=== PATIENT | female | born 1940 | race Caucasian/White ===

== ENCOUNTER → 2016-03-16 | Outpatient (CLI) | payer OTHER ==
[~2016-03-16] MED LIST: ASPEC81 PO; AVP150 PO; BTLAI INJ; CIPR-255 PO; DICY10CA55 PO; IBUP-1050 PO; LORA-741 PO; SIMV20TA5 PO; TRIA75TA53 PO
[2016-03-16 13:59] LABS: ESTIMATED AVERAGE GLUCOSE 111 mg/dl; HA1C FLAG Normal (Normal)
[2016-03-16 16:48] LABS: ALB/GLOB RATIO 1.3 (0.9-2); ALKALINE PHOSPHATASE 92 U/L (45-117); ALT/SGPT 26 U/L (12-78); AST/SGOT 15 U/L (15-37); BLOOD UREA NITROGEN 24 mg/dl (7-18); BUN/CREATININE RATIO 25.5 (10-20); CALCIUM 9.3 mg/dl (8.5-10.1); CARBON DIOXIDE 26 mmol/L (21-32); CHLORIDE 106 mmol/L (98-107); CHOLESTEROL 179 mg/dl (0-200); CHOLESTEROL/HDL RATIO 2.9; CREATININE 0.96 mg/dl (0.60-1.20); GLUCOSE 93 mg/dl (70-99); HDL CHOLESTEROL 61 mg/dl; POTASSIUM 3.6 mmol/L (3.5-5.1); SODIUM 142 mmol/L (136-145); TRIGLYCERIDES 96 mg/dl (0-150); VERY LOW DENSITY LIPOPROT CALC 19 mg/dl
== END | disposition home or self-care (01) ==
LOC: C.LABSPEC 12:32
PROVIDERS: ATTEND Internal Medicine
DX: I10 Essential (primary) hypertension (principal); R78.5 Finding of other psychotropic drug in blood; R73.9 Hyperglycemia, unspecified

== ENCOUNTER → 2016-09-15 | Outpatient (CLI) | payer OTHER ==
[2016-09-15 13:03] LABS: ESTIMATED AVERAGE GLUCOSE 114 mg/dl; HA1C FLAG Normal (Normal)
[2016-09-15 13:10] LABS: ALT/SGPT 625 U/L (12-78); AST/SGOT 306 U/L (15-37); BLOOD UREA NITROGEN 22 mg/dl (7-18); BUN/CREATININE RATIO 19.7 (10-20); CALCIUM 9.3 mg/dl (8.5-10.1); CARBON DIOXIDE 26 mmol/L (21-32); CHLORIDE 107 mmol/L (98-107); CHOLESTEROL 170 mg/dl (0-200); GLUCOSE 88 mg/dl (70-99); POTASSIUM 3.9 mmol/L (3.5-5.1); SODIUM 139 mmol/L (136-145); TRIGLYCERIDES 112 mg/dl (0-150); VERY LOW DENSITY LIPOPROT CALC 22 mg/dl
[2016-09-15 13:14] LABS: ALB/GLOB RATIO 1.2 (0.9-2); ALKALINE PHOSPHATASE 124 U/L (45-117); CHOLESTEROL/HDL RATIO 2.9; HDL CHOLESTEROL 59 mg/dl
== END | disposition home or self-care (01) ==
LOC: C.LABSPEC 12:18
PROVIDERS: ATTEND Internal Medicine
DX: Z00.00 Encounter for general adult medical examination without abnormal findings (principal); E78.5 Hyperlipidemia, unspecified; I10 Essential (primary) hypertension; R73.9 Hyperglycemia, unspecified

== ENCOUNTER → 2016-09-16 | Outpatient (CLI) | payer OTHER ==
--- NOTE | 2016-09-16 13:43 | MAMMOGRAPHY REPORT ---
BILATERAL DIGITAL SCREENING MAMMOGRAM WITH CAD: 09/16/2016 CLINICAL HISTORY: Routine screening. Patient has no complaints. TECHNIQUE: Bilateral CC and MLO views were obtained. Current study was also evaluated with a Compute r Aided Detection (CAD) system. COMPARISON: Comparison is made to exams dated: 09/10/2015 mammogram, 09/07/2014 mammogram, 09/06/2013 m ammogram, 06/08/2012 mammogram, 06/03/2011 mammogram, and 05/28/2010 mammogram - [facility] enter. BREAST COMPOSITION: There are scattered areas of fibroglandular density in both breasts. FINDINGS: There are stable benign round microcalcifications in the right breast. The parenchymal pa ttern is similar to prior mammograms, with stable asymmetries in each lateral breast. No developing mass, architectural distortion or cluster of suspicious microcalcifications is seen. IMPRESSION: ACR BI-RADS CATEGORY 2: BENIGN There is no mammographic evidence of malignancy. A 1 year screening mammogram is recommended. The pa tient will receive written notification of the results. Approximately 10% of breast cancers are not detected with mammography. A negative mammographic report should not delay biopsy if a clinically suggestive mass is present. Aminata Hameed M.D. ay/:09/16/2016 10:44:55 Backrest Assembler: Crystal GUTIERREZ(Megan)(Darline)(BD), [facility] letter sent: Normal 1/2 BI-RADS Code: ACR BI-RADS Category 2: Benign
== END | disposition home or self-care (01) ==
LOC: C.MAMM 10:25
PROVIDERS: ATTEND Internal Medicine
DX: Z12.31 Encounter for screening mammogram for malignant neoplasm of breast (principal)

== ENCOUNTER → 2016-09-17 | Outpatient (CLI) | payer OTHER ==
[2016-09-17 13:23] LABS: HEPATITIS B AB NEG
== END | disposition home or self-care (01) ==
LOC: C.LABSPEC 12:16
PROVIDERS: ATTEND Internal Medicine
DX: R74.8 Abnormal levels of other serum enzymes (principal)

== ENCOUNTER → 2016-09-24 | Outpatient (CLI) | payer OTHER ==
--- NOTE | 2016-09-24 09:05 | DIAGNOSTIC IMAGING REPORT ---
ABDOMINAL ULTRASOUND, RIGHT UPPER QUADRANT HISTORY: Abnormal LIVER ENZYMES. COMPARISON: Abdomen and pelvis CT 08/18/2015. FINDINGS: Pancreas: There is a 1.6 x 1.4 x 1.0 cm cyst at the pancreatic head. Liver: Unremarkable. Gallbladder: The gallbladder is surgically absent. CBD: 5 mm Right kidney: No hydronephrosis. IMPRESSION: A 1.6 x 1.4 x 1.0 cm pancreatic head cystic lesion. This favors a side branch IPMN or serous cystadenoma. Follow-up dedicated pancreatic MRI can be performed for further evaluation. Electronically signed by: Zeus Craven M.D. 09/24/2016 9:03 AM Dictated Date/Time: 09/24/2016 8:53 AM
== END | disposition home or self-care (01) ==
LOC: C.ULTR 07:53
PROVIDERS: ATTEND Internal Medicine
DX: R85.0 Abnormal level of enzymes in specimens from digestive organs and abdominal cavity (principal)

== ENCOUNTER → 2016-09-25 | Outpatient (CLI) | payer OTHER ==
[2016-09-25 19:37] LABS: LYME DISEASE AB IGM NEG (NEG)
[2016-09-25 19:38] LABS: LYME DISEASE AB IGG NEG (NEG)
== END | disposition home or self-care (01) ==
LOC: C.LABSPEC 17:36
PROVIDERS: ATTEND Internal Medicine
DX: K86.9 Disease of pancreas, unspecified (principal); R94.5 Abnormal results of liver function studies

== ENCOUNTER → 2016-10-01 | Outpatient (CLI) | payer OTHER ==
[2016-10-01 19:26] LABS: ALB/GLOB RATIO 1.2 (0.9-2); ALKALINE PHOSPHATASE 136 U/L (45-117); ALT/SGPT 590 U/L (12-78); AST/SGOT 277 U/L (15-37); BLOOD UREA NITROGEN 26 mg/dl (7-18); BUN/CREATININE RATIO 26.2 (10-20); CARBON DIOXIDE 27 mmol/L (21-32); CHLORIDE 106 mmol/L (98-107); GLUCOSE 81 mg/dl (70-99); POTASSIUM 4.3 mmol/L (3.5-5.1); SODIUM 135 mmol/L (136-145)
--- NOTE | 2016-10-01 20:49 | DIAGNOSTIC IMAGING REPORT ---
MRCP CLINICAL HISTORY: Pancreatic head lesion. COMPARISON STUDY: Abdominal CT dated 08/18/2015. Abdominal ultrasound dated 09/24/2016. TECHNIQUE: Abdominal MRCP is performed utilizing various T2-weighted sequences in the axial and coronal planes. 3-D reformats are created and assessed. IV contrast was not administered for this examination. The examination is compromised by motion artifact. FINDINGS: The gallbladder is surgically absent. There is no intrahepatic biliary ductal dilatation. The common bile duct is normal in caliber measuring up to 3 mm diameter. There are no filling defects seen to suggest choledocholithiasis. The pancreatic duct is normal in caliber. There is a 6 mm cystic structure adjacent to the main pancreatic duct in the pancreatic body seen on high-resolution axial image #135. This is typical appearance for a small sidebranch IPMN. 2 similar-appearing lesions are seen in the distal body and tail on axial image #130. There is a 1.4 cm lobulated cystic lesion in the pancreatic head seen on axial image #146. The heart is enlarged and there is trace pericardial fluid. No pleural effusion is identified. The hepatic parenchyma is grossly normal as imaged. The unenhanced spleen is grossly normal. The kidneys demonstrate mild cortical atrophy and are without hydronephrosis. The adrenal glands are normal as visualized. The abdominal aorta is normal in caliber. There is no abdominal ascites. No evidence of bowel obstruction is seen. IMPRESSION: 1. Unremarkable MRCP noting status post cholecystectomy. 2. There is a 1.4 cm lobulated cystic lesion the pancreatic head. This corresponds to the lesion seen by ultrasound, and likely represents a sidebranch IPMN or mucinous cystic neoplasm. Additionally, there are at least 3 additional subcentimeter cystic foci within the pancreas. These are also typical in appearance for small sidebranch IPMNs. If further assessment is desired then endoscopic ultrasound would be appropriate. 3. Additional findings as above. Electronically signed by: Leland Quick M.D. 10/01/2016 8:47 PM Dictated Date/Time: 10/01/2016 7:18 PM
== END | disposition home or self-care (01) ==
LOC: C.MRI 18:34
PROVIDERS: ATTEND Internal Medicine
DX: R74.8 Abnormal levels of other serum enzymes (principal); K86.9 Disease of pancreas, unspecified; Z90.49 Acquired absence of other specified parts of digestive tract

== ENCOUNTER → 2016-10-08 | Outpatient (CLI) | payer OTHER | END | disposition home or self-care (01) | LOC: C.LABSPEC 13:03 | PROVIDERS: ATTEND Internal Medicine | DX: R94.5 Abnormal results of liver function studies (principal) ==

== ENCOUNTER → 2016-10-15 | Outpatient (CLI) | payer OTHER | END | disposition home or self-care (01) | LOC: C.LABSPEC 12:09 | PROVIDERS: ATTEND Internal Medicine | DX: R74.8 Abnormal levels of other serum enzymes (principal) ==

== ENCOUNTER → 2016-10-28 | Outpatient (CLI) | payer OTHER | END | disposition home or self-care (01) | LOC: C.LABSPEC 12:12 | PROVIDERS: ATTEND Internal Medicine | DX: R74.8 Abnormal levels of other serum enzymes (principal) ==

== ENCOUNTER → 2017-02-26 | Outpatient (CLI) | payer OTHER ==
[2017-02-26 13:38] LABS: BASO % 0.3 %; BASO ABS # 0.01 K/uL (0-0.2); EOS % 1.7 %; EOS ABS # 0.06 K/uL (0-0.5); HEMATOCRIT 40.2 % (37-47); HEMOGLOBIN 13.9 g/dL (12.0-16.0); IG# 0.02 K/uL (0.00-0.02); LYMPH % 26.3 %; LYMPH ABS # 0.95 K/uL (1.2-3.4); MEAN CELL VOLUME 93.5 fL (80-100); MEAN CORPUSCULAR HEMOGLOBIN 32.3 pg (25-34); MEAN CORPUSCULAR HGB CONC 34.6 g/dl (32-36); MEAN PLATELET VOLUME 11.5 fL (7.4-10.4); MONO % 8.3 %; NEUT % 62.8 %; NEUT ABS # 2.27 K/uL (1.4-6.5); PLATELET COUNT 136 K/uL (130-400); RED CELL DISTRIBUTION WIDTH CV 13.2 % (11.5-14.5); RED CELL DISTRIBUTION WIDTH SD 45.3 fL (36.4-46.3); WHITE BLOOD COUNT 3.61 K/uL (4.8-10.8)
[2017-02-26 14:31] LABS: ALBUMIN 3.5 gm/dl (3.4-5.0); ALT/SGPT 37 U/L (12-78); AST/SGOT 26 U/L (15-37); BLOOD UREA NITROGEN 26 mg/dl (7-18); CALCIUM 8.9 mg/dl (8.5-10.1); CARBON DIOXIDE 27 mmol/L (21-32); CHOLESTEROL 186 mg/dl (0-200); CREATININE 1.13 mg/dl (0.60-1.20); GLUCOSE 93 mg/dl (70-99); POTASSIUM 3.7 mmol/L (3.5-5.1); SODIUM 140 mmol/L (136-145)
[2017-02-26 14:34] LABS: ALKALINE PHOSPHATASE 76 U/L (45-117); LDL CHOLESTEROL (DIRECT) 122 mg/dl; TOTAL PROTEIN 6.6 gm/dl (6.4-8.2)
== END | disposition home or self-care (01) ==
LOC: C.LABSPEC 12:19
PROVIDERS: ATTEND Internal Medicine
DX: J40 Bronchitis, not specified as acute or chronic (principal); I10 Essential (primary) hypertension; E78.5 Hyperlipidemia, unspecified; R74.8 Abnormal levels of other serum enzymes

== ENCOUNTER → 2017-02-26 | Outpatient (CLI) | payer OTHER ==
--- NOTE | 2017-02-26 12:12 | DIAGNOSTIC IMAGING REPORT ---
CHEST 2 VIEWS ROUTINE CLINICAL HISTORY: Cough, shortness of breath and chest pain. COMPARISON STUDY: Chest radiograph August 06, 2006. FINDINGS: Lung volumes are normal. No pneumothorax or pleural effusion is identified. Mild left lower lung opacity favors atelectasis. There is no consolidation to suggest pneumonia. Pulmonary vascularity is normal. Cardiomediastinal silhouette is stable. Linear right infrahilar opacity reflects atelectasis. There are cholecystectomy clips. IMPRESSION: No acute cardiopulmonary findings. Electronically signed by: Tre Limon M.D. 02/26/2017 12:11 PM Dictated Date/Time: 02/26/2017 11:42 AM
== END | disposition home or self-care (01) ==
LOC: C.RAD 11:15
PROVIDERS: ATTEND Internal Medicine
DX: J40 Bronchitis, not specified as acute or chronic (principal)

== ENCOUNTER → 2017-09-17 | Outpatient (CLI) | payer OTHER ==
[2017-09-17 14:17] LABS: ALBUMIN 3.8 gm/dl (3.4-5.0); ALKALINE PHOSPHATASE 89 U/L (45-117); ALT/SGPT 23 U/L (12-78); AST/SGOT 20 U/L (15-37); BLOOD UREA NITROGEN 23 mg/dl (7-18); CARBON DIOXIDE 26 mmol/L (21-32); CHOLESTEROL 243 mg/dl (0-200); CREATININE 0.97 mg/dl (0.60-1.20); GLUCOSE 86 mg/dl (70-99); LDL CHOLESTEROL (DIRECT) 171 mg/dl; POTASSIUM 3.4 mmol/L (3.5-5.1); SODIUM 139 mmol/L (136-145); TOTAL PROTEIN 6.8 gm/dl (6.4-8.2)
[2017-09-17 14:22] LABS: HEMOGLOBIN A1C 5.5 % (4.5-5.6)
== END | disposition home or self-care (01) ==
LOC: C.LABSPEC 13:05
PROVIDERS: ATTEND Internal Medicine
DX: Z00.00 Encounter for general adult medical examination without abnormal findings (principal); E78.5 Hyperlipidemia, unspecified; I10 Essential (primary) hypertension

== ENCOUNTER → 2017-09-20 | Outpatient (CLI) | payer OTHER ==
--- NOTE | 2017-09-21 14:42 | MAMMOGRAPHY REPORT ---
BILATERAL DIGITAL SCREENING MAMMOGRAM TOMOSYNTHESIS WITH CAD: 09/20/2017 CLINICAL HISTORY: Routine screening. Patient has no complaints. TECHNIQUE: The study was acquired using full field digital technology and interpreted from soft copy. Breast tomosynthesis in addition to standard 2D mammography was performed. Current study was also ev aluated with a Computer Aided Detection (CAD) system. COMPARISON: Comparison is made to exams dated: 09/16/2016 mammogram, 09/10/2015 mammogram, 09/07/2014 ma mmogram, 09/06/2013 mammogram, 06/08/2012 mammogram, and 06/03/2011 mammogram - [facility] nter. BREAST COMPOSITION: There are scattered areas of fibroglandular density in both breasts. FINDINGS: There is a newly visualized 3 mm focal asymmetry in the upper outer posterior right breast, for which additional targeted ultrasound and possible additional mammographic views are recommended. There are minimal vascular calcifications in the breasts. No other suspicious mass, architectural di stortion or cluster of microcalcifications is seen. IMPRESSION: ACR BI-RADS CATEGORY 0: INCOMPLETE EVALUATION: NEED ADDITIONAL IMAGING EVALUATION The newly visualized 3 mm focal asymmetry in the upper outer posterior right breast needs additional evaluation. The patient will be called to schedule an appointment. Some breast cancers are not detected with mammography. A negative mammographic report should not alan y biopsy if a clinically suggestive mass is present. Aminata Hameed M.D. ay/:09/20/2017 15:15:54 Operations Support Professionals: RT Shahla(Megan)(Darline), [facility] letter sent: Addl Imaging 0 BI-RADS Code: ACR BI-RADS Category 0: Incomplete Evaluation: Need Additional Imaging Evaluation
== END | disposition home or self-care (01) ==
LOC: C.MAMM 10:22
PROVIDERS: ATTEND Internal Medicine
DX: Z12.31 Encounter for screening mammogram for malignant neoplasm of breast (principal); R92.8 Other abnormal and inconclusive findings on diagnostic imaging of breast

== ENCOUNTER → 2017-09-30 | Outpatient (CLI) | payer OTHER ==
--- NOTE | 2017-09-30 15:41 | MAMMOGRAPHY REPORT ---
UNILATERAL RIGHT DIGITAL DIAGNOSTIC MAMMOGRAM TOMOSYNTHESIS WITH CAD AND TARGETED RIGHT ULTRASOUND: CLINICAL HISTORY: Callback from screening mammogram for right breast asymmetry. Right Asymmetry. TECHNIQUE: The study was acquired using full field digital technology and interpreted from soft copy. Breast tomosynthesis in addition to standard 2D mammography was performed. Current study was also ev aluated with a Computer Aided Detection (CAD) system. Spot compression right CC and MLO and right X CCL 2D and tomosynthesis images were obtained. COMPARISON: Comparison is made to exams dated: 09/20/2017 mammogram, 09/16/2016 mammogram, 09/10/2015 bahman mogram, 09/07/2014 mammogram, 09/06/2013 mammogram, and 06/08/2012 mammogram - [facility]. BREAST COMPOSITION: There are scattered areas of fibroglandular density in right breast. FINDINGS: Spot compression views demonstrate a small oval low-density circumscribed benign-appearing 3 mm mass within the right upper outer quadrant. Targeted ultrasound was performed of the right upper outer quadrant in the region of the mammographic mass. In the right 11:00 breast, approximately 7 cm from the nipple, there is an oval circumscribed anechoic mass which measures 2 x 2 mm. This corresponds with the circumscribed mammographic mass an d is consistent with a benign cyst. IMPRESSION: ACR BI-RADS CATEGORY 2: BENIGN, ULTRASOUND ACR BI-RADS CATEGORY 2: BENIGN Benign 2 mm cyst in the right 11:00 breast on ultrasound, which corresponds with the circumscribed ma mmographic mass. There is no mammographic or sonographic evidence of malignancy. A 1 year screening mammogram is recommended. The patient has been verbally notified of the results. Some breast cancers are not detected with mammography. A negative mammographic report should not alan y biopsy if a clinically suggestive mass is present. Thi Frost M.D. /:09/30/2017 09:43:35 Design Transferrer: RT Angela(R)(M), [facility]; Thi Frost MD, [facility] letter sent: Normal 1/2 OVERALL STUDY BIRADS: 2 Benign
== END | disposition home or self-care (01) ==
LOC: C.MAMM 09:10
PROVIDERS: ATTEND Internal Medicine
DX: N64.9 Disorder of breast, unspecified (principal); N60.01 Solitary cyst of right breast

== ENCOUNTER 2019-12-18 12:11 | Inpatient (IN) ==
[2019-12-18 12:41] LABS: Basophils # (auto) 0.02 K/uL (0-0.2); Basophils % (auto) 0.2 %; Eosinophils # (auto) 0.16 K/uL (0-0.5); Eosinophils % (auto) 1.6 %; Hematocrit (blood only) 40.1 % (37-47); Hemoglobin 13.2 g/dL (12.0-16.0); Immature Granulocytes # (auto) 0.06 K/uL (0.00-0.02); Immature Granulocytes % (auto) 0.6 %; Lymphocytes # (auto) 1.81 K/uL (1.2-3.4); Lymphocytes % (auto) 17.6 %; Mean Corpuscular Hgb Conc 32.9 g/dL (32-36); Mean Corpuscular Volume 94.1 fL (80-100); Mean Platelet Volume 10.6 fL (7.4-10.4); Monocytes # (auto) 0.56 K/uL (0.11-0.59); Monocytes % (auto) 5.4 %; Neutrophils # (auto) 7.68 K/uL (1.4-6.5); Neutrophils % (auto) 74.6 %; Platelet Count 352 K/uL (130-400); RDW Coefficient of Variation 13.1 % (11.5-14.5); RDW Standard Deviation 45.3 fL (36.4-46.3); Red Blood Count 4.26 M/uL (4.2-5.4); White Blood Count 10.29 K/uL (4.8-10.8)
[2019-12-18] MEDS ORDERED: SODIUM CHLORIDE 0.9% 1000ML 1,000 ML IV SCH (12:45)
[2019-12-18 12:54] LABS: Alanine Aminotransferase 15 U/L (12-78); Albumin Level 3.7 gm/dl (3.4-5.0); Aspartate Aminotransferase 14 U/L (15-37); BUN Creatinine Ratio 18.1 (10-20); Blood Urea Nitrogen 24 mg/dl (7-18); Calcium 9.6 mg/dl (8.5-10.1); Carbon Dioxide 23 mmol/L (21-32); Chloride 104 mmol/L (98-107); Creatinine Clr Calc Pharmacy 30.3 ml/min; Est GFR (African American) 42.6; Est GFR (Non-African American) 36.7; Glucose 112 mg/dl (70-99); Potassium 3.6 mmol/L (3.5-5.1); Sodium 137 mmol/L (136-145)
[2019-12-18 13:00] LABS: INR 1.1 (0.9-1.1); Prothrombin Time 11.4 Seconds (9.0-12.0)
[2019-12-18 13:05] LABS: Alkaline Phosphatase 110 U/L (45-117); Bilirubin,Total 0.7 mg/dl (0.2-1); Globulin 3.8 gm/dl (2.5-4.0); Total Protein 7.5 gm/dl (6.4-8.2); Troponin I < 0.015 ng/ml (0-0.045)
[2019-12-18 13:18] LABS: T4 Free Thyroxine 1.19 ng/dl (0.8-1.6)
[2019-12-18] MEDS ORDERED: IOVERSOL 100ml IV ONE (13:21)
--- NOTE | 2019-12-18 13:27 | Emergency Department Note ---
History of Present Illness General Chief complaint: Syncope (Near Syncope) Stated complaint: Sudden onset dizzy/near sycope w/ abd pain x 3wks Time Seen by Provider: 12/18/19 12:22 Source: patient Mode of arrival: ambulatory Limitations: no limitations History of Present Illness Provider complaint: Left lower quadrant abdominal pain and syncope Maximum Pain Intensity: 0 This is an 79-year-old female who presents to the ED with a chief complaint of a syncopal episode this morning as well as ongoing left lower quadrant abdominal pain. The patient states that she has intermittent sharp pains in her left lower quadrant for the past 2 or 3 weeks. She states that normally when she gets these pains, she drinks some fluids for couple of days and it resolved but this 1 did not. She describes also a continuous pressure in her left lower quadrant. Her symptoms are worse with eating and drinking. Yesterday her sharp pains became more often. She denies having any sharp pains now. This morning when she was having a bowel movement, she had a pressure there and was straining to move her bowels. She subsequently had a syncopal episode and passed out. The patient was diaphoretic when she awoke. The was present and confirmed the diaphoresis. There was no seizure activity. She does report some nausea associated with her bad pains but currently denies any nausea. She has not vomited. She did not have any palpitations or chest pains when she awoke. She denies any shortness of breath. She has not had any fevers or recent illness. Home Medications Home Medications Medication Instructions Recorded Confirmed Type L. acidophilus-L. rhamnosus 1 cap PO QAM 12/18/19 12/18/19 History [Probiotic] ascorbic acid (vitamin C) [Vitamin 1 g PO QAM 12/18/19 12/18/19 History C] aspirin 81 mg PO HS 12/18/19 12/18/19 History cholecalciferol (vitamin D3) 50 mcg PO QAM 12/18/19 12/18/19 History [Vitamin D3] ezetimibe 10 mg PO HS 12/18/19 12/18/19 History irbesartan 150 mg PO QAM 12/18/19 12/18/19 History lorazepam 0.5 mg PO HS 12/18/19 12/18/19 History niacin [Slo-Niacin] 250 mg PO HS 12/18/19 12/18/19 History onabotulinumtoxinA [Botox] 1 unit INTRADERMAL Q3M 12/18/19 12/18/19 History potassium chloride 20 meq PO QDD 12/18/19 12/18/19 History triamterene-hydrochlorothiazid 1 tab PO QAM 12/18/19 12/18/19 History Allergies Allergy/AdvReac Type Severity Reaction Status Date / Time No Known Allergies Allergy Verified 12/18/19 13:33 Past Med/Surg History Social History Smoking Status: Never smoker Preferred Language: Latvian Feels Safe at Home: Yes Review of Systems A total of 10 systems reviewed and were otherwise negative Physical Exam Vital Signs Vital Signs - 24 hr 12/18/19 12:17 12/18/19 12:19 12/18/19 12:21 Temperature 36.4 C L Temperature Source Oral Pulse Rate 80 76 79 Pulse Rate from SpO2 Sensor 77 81 Pulse Rhythm Regular Pulse Strength Normal Respiratory Rate 24 18 18 Respiratory Effort / Characteristics Non-Labored Spontaneous Respiratory Depth Normal Respiratory Pattern Regular Blood Pressure 121/75 121/75 Blood Pressure Mean 88 90 Blood Pressure Position Lying Pulse Oximetry 98 98 99 Oxygen Delivery Method Room Air Sepsis Recent Fever Within 48 Hours No Sepsis New/Unexplained Change in Mental Status N/A Sepsis Action Taken by Nursing No Action Required 12/18/19 12:30 12/18/19 12:31 12/18/19 12:40 Temperature Temperature Source Pulse Rate 82 85 72 Pulse Rate from SpO2 Sensor 80 86 Pulse Rhythm Pulse Strength Respiratory Rate 22 18 20 Respiratory Effort / Characteristics Respiratory Depth Respiratory Pattern Blood Pressure 144/69 H Blood Pressure Mean 88 Blood Pressure Position Pulse Oximetry 98 99 97 Oxygen Delivery Method Room Air Sepsis Recent Fever Within 48 Hours Sepsis New/Unexplained Change in Mental Status Sepsis Action Taken by Nursing 12/18/19 13:00 12/18/19 13:32 12/18/19 13:41 Temperature Temperature Source Pulse Rate 86 83 Pulse Rate from SpO2 Sensor 86 90 Pulse Rhythm Pulse Strength Respiratory Rate 24 20 22 Respiratory Effort / Characteristics Respiratory Depth Respiratory Pattern Blood Pressure 104/58 L 105/74 Blood Pressure Mean 76 75 Blood Pressure Position Pulse Oximetry 97 Oxygen Delivery Method Sepsis Recent Fever Within 48 Hours Sepsis New/Unexplained Change in Mental Status Sepsis Action Taken by Nursing 12/18/19 14:00 12/18/19 14:01 12/18/19 14:30 Temperature Temperature Source Pulse Rate 72 68 85 Pulse Rate from SpO2 Sensor 72 69 84 Pulse Rhythm Pulse Strength Respiratory Rate 17 17 13 Respiratory Effort / Characteristics Respiratory Depth Respiratory Pattern Blood Pressure 116/65 Blood Pressure Mean 90 Blood Pressure Position Pulse Oximetry 96 96 99 Oxygen Delivery Method Sepsis Recent Fever Within 48 Hours Sepsis New/Unexplained Change in Mental Status Sepsis Action Taken by Nursing 12/18/19 14:31 Temperature Temperature Source Pulse Rate 86 Pulse Rate from SpO2 Sensor 86 Pulse Rhythm Pulse Strength Respiratory Rate 16 Respiratory Effort / Characteristics Respiratory Depth Respiratory Pattern Blood Pressure 114/86 Blood Pressure Mean 89 Blood Pressure Position Pulse Oximetry 99 Oxygen Delivery Method Sepsis Recent Fever Within 48 Hours Sepsis New/Unexplained Change in Mental Status Sepsis Action Taken by Nursing CONSTITUTIONAL/VITAL SIGNS: Reviewed / noted above. GENERAL: Non-toxic in appearance. INTEGUMENTARY: Warm, dry, and [place]. HEAD: Normocephalic. EYES: without scleral icterus or trauma. ENT/OROPHARYNX: clear and moist. LYMPHADENOPATHY/NECK: Is supple without lymphadenopathy or meningismus. RESPIRATORY: Lungs clear and equal. CARDIOVASCULAR: Regular rate and rhythm. GI/ABDOMEN: Soft and mildly tender left lower quadrant. No organomegaly or pulsatile mass. No rebound or guarding. Normal bowel sounds. EXTREMITIES: Warm and well perfused. BACK: No CVA tenderness. NEUROLOGICAL: Intact without focal deficits. PSYCHIATRIC: normal affect. MUSCULOSKELETAL: Normally developed with good muscle tone. TRIAGE NURSING DOCUMENTATION REVIEWED. Course Administered Medications Discontinued Medications Sodium Chloride (Nss 1000ml) 1,000 mls @ 999 mls/hr IV .Q1H1M [facility] Stop: 12/18/19 13:45 Last Infusion: 12/18/19 13:37 Dose: 0 mls/hr Documented by: [id number] Admin: 12/18/19 12:44 Dose: 999 mls/hr Documented by: [id number] Ioversol (Ioversol 100ml) 94 ml IV ONCE ONE Stop: 12/18/19 13:22 Last Admin: 12/18/19 13:22 Dose: 94 ml Documented by: [id number] Medical Decision Making Differential Diagnosis Differential considered: pancreatitis, hepatitis, acute cholecystitis, AAA, UTI, pyelonephritis, kidney stones, appendicitis, diverticulitis, shingles, bowel obstruction, mesenteric ischemia, intussusception,hernia Dacute cardiac dysrhythmia, ID, CVA, TIA, dehydration, anemia, electrolyte disturbance, seizure, trauma, intracranial bleeding, acute vascular catastrophe, thoracic aortic dissection, PE, abdominal aortic aneurysm rupture Medical Records Attestation: I reviewed the patient's medical records. Home Medications Current Medication List: was personally reviewed by me Laboratory Data Attestation: I reviewed the patient's lab results. Result diagrams: 12/18/19 11:57 12/18/19 11:57 Lab Results 12/18/19 12/18/19 12/18/19 Range/Units 11:57 11:57 11:57 WBC 10.29 (4.8-10.8) K/uL RBC 4.26 (4.2-5.4) M/uL Hgb 13.2 (12.0-16.0) g/dL Hct 40.1 (37-47) % MCV 94.1 (80-100) fL MCH 31.0 (25-34) pg MCHC 32.9 (32-36) g/dL RDW Std Deviation 45.3 (36.4-46.3) fL RDW Coeff of Epifanio 13.1 (11.5-14.5) % Plt Count 352 (130-400) K/uL MPV 10.6 H (7.4-10.4) fL Immature Gran % (Auto) 0.6 % Neut % (Auto) 74.6 % Lymph % (Auto) 17.6 % [place] % (Auto) 5.4 % Eos % (Auto) 1.6 % Baso % (Auto) 0.2 % Neut # (Auto) 7.68 H (1.4-6.5) K/uL Lymph # (Auto) 1.81 (1.2-3.4) K/uL [place] # (Auto) 0.56 (0.11-0.59) K/uL Eos # (Auto) 0.16 (0-0.5) K/uL Baso # (Auto) 0.02 (0-0.2) K/uL Immature Gran # (Auto) 0.06 H (0.00-0.02) K/uL PT 11.4 (9.0-12.0) Seconds INR 1.1 (0.9-1.1) Sodium 137 (136-145) mmol/L Potassium 3.6 (3.5-5.1) mmol/L Chloride 104 (98-107) mmol/L Carbon Dioxide 23 (21-32) mmol/L Anion Gap 10.0 (3-11) BUN 24 H (7-18) mg/dl Creatinine 1.35 H (0.6-1.2) mg/dl Est Cr Clr Drug Dosing 30.3 ml/min Est GFR ( Amer) 42.6 Est GFR (Non-Af Amer) 36.7 BUN/Creatinine Ratio 18.1 (10-20) Glucose 112 H (70-99) mg/dl Calcium 9.6 (8.5-10.1) mg/dl Total Bilirubin 0.7 (0.2-1) mg/dl AST 14 L (15-37) U/L ALT 15 (12-78) U/L Alkaline Phosphatase 110 (45-117) U/L Troponin I < 0.015 (0-0.045) ng/ml Total Protein 7.5 (6.4-8.2) gm/dl Albumin 3.7 (3.4-5.0) gm/dl Globulin 3.8 (2.5-4.0) gm/dl Albumin/Globulin Ratio 1.0 (0.9-2) TSH 5.270 H (0.300-4.500) uIu/ml Free T4 1.19 (0.8-1.6) ng/dl Urine Color Urine Appearance (Clear) Urine pH (4.5-7.5) Ur Specific [place] (1.000-1.030) Urine Protein (Negative) Urine Glucose (UA) (Negative) Urine Ketones (Negative) Urine Blood (Negative) Urine Nitrite (Negative) Urine Bilirubin (Negative) Urine Urobilinogen (Negative) Ur Leukocyte Esterase (Negative) Urine WBC (Auto) (0-5) /hpf Urine RBC (Auto) (0-4) /hpf U Hyaline Cast (Auto) (0-5) /lpf U Epithel Cells (Auto) (0-5) /lpf Urine Bacteria (Auto) (Negative) 12/18/19 Range/Units 13:38 WBC (4.8-10.8) K/uL RBC (4.2-5.4) M/uL Hgb (12.0-16.0) g/dL Hct (37-47) % MCV (80-100) fL MCH (25-34) pg MCHC (32-36) g/dL RDW Std Deviation (36.4-46.3) fL RDW Coeff of Epifanio (11.5-14.5) % Plt Count (130-400) K/uL MPV (7.4-10.4) fL Immature Gran % (Auto) % Neut % (Auto) % Lymph % (Auto) % [place] % (Auto) % Eos % (Auto) % Baso % (Auto) % Neut # (Auto) (1.4-6.5) K/uL Lymph # (Auto) (1.2-3.4) K/uL [place] # (Auto) (0.11-0.59) K/uL Eos # (Auto) (0-0.5) K/uL Baso # (Auto) (0-0.2) K/uL Immature Gran # (Auto) (0.00-0.02) K/uL PT (9.0-12.0) Seconds INR (0.9-1.1) Sodium (136-145) mmol/L Potassium (3.5-5.1) mmol/L Chloride (98-107) mmol/L Carbon Dioxide (21-32) mmol/L Anion Gap (3-11) BUN (7-18) mg/dl Creatinine (0.6-1.2) mg/dl Est Cr Clr Drug Dosing ml/min Est GFR ( Amer) Est GFR (Non-Af Amer) BUN/Creatinine Ratio (10-20) Glucose (70-99) mg/dl Calcium (8.5-10.1) mg/dl Total Bilirubin (0.2-1) mg/dl AST (15-37) U/L ALT (12-78) U/L Alkaline Phosphatase (45-117) U/L Troponin I (0-0.045) ng/ml Total Protein (6.4-8.2) gm/dl Albumin (3.4-5.0) gm/dl Globulin (2.5-4.0) gm/dl Albumin/Globulin Ratio (0.9-2) TSH (0.300-4.500) uIu/ml Free T4 (0.8-1.6) ng/dl Urine Color Yellow Urine Appearance Clear (Clear) Urine pH 7.0 (4.5-7.5) Ur Specific [place] 1.018 (1.000-1.030) Urine Protein Negative (Negative) Urine Glucose (UA) Negative (Negative) Urine Ketones Trace H (Negative) Urine Blood Negative (Negative) Urine Nitrite Negative (Negative) Urine Bilirubin Negative (Negative) Urine Urobilinogen Negative (Negative) Ur Leukocyte Esterase Trace H (Negative) Urine WBC (Auto) 1-5 (0-5) /hpf Urine RBC (Auto) 0-4 (0-4) /hpf U Hyaline Cast (Auto) 5-10 H (0-5) /lpf U Epithel Cells (Auto) 10-20 H (0-5) /lpf Urine Bacteria (Auto) Negative (Negative) Imaging Data Radiologist's Impression: CT scan abdomen pelvis IMPRESSION: 1. Acute diverticulitis within the mid sigmoid colon. There is a possible 1.3 cm intramural abscess at this location. No perforation. Follow-up colonoscopy is recommended once the diverticulitis has resolved to exclude the less likely possibility of an underlying colonic lesion. 2. No evidence for bowel obstruction. 3. Mild fullness within the bilateral renal collecting systems without hydronephrosis. This is similar to the prior study. 4. Cholecystectomy. 5. Additional findings as described above. Chest x-ray IMPRESSION: Mild cardiac enlargement with no active disease in the chest. ECG Data Attestation: I personally reviewed and interpreted this ECG as follows: Indication: + syncope Rate (beats per minute): [address] segments: no ST elevation ECG Findings: no PVCs Change: no significant change (08/06/06) MDM Narrative The patient presents with a ongoing left lower quadrant abdominal pain as detailed above. She had a syncopal episode while straining to move her bowels this morning. She presents for further evaluation. Her vital signs reveal some mild hypertension. Physical exam reveals mild left lower quadrant tenderness. Initial twelve-lead EKG shows a normal sinus rhythm at a rate of 73 without ischemic changes or arrhythmia. CBC and chemistry panel was unremarkable. Troponin was negative. TSH was normal. CT scan of the abdomen pelvis reveals acute diverticulitis of the mid sigmoid with a 1.3 cm intramural abscess. The patient was treated with IV Zosyn. She was given some IV fluids. She will be seen by the hospitalist. I suspect the patient passed on him straining resulti ng in either bradycardia or hypotension. Impression & Plan Acute diverticulitis, Syncope Discharge Plan Visit Data Chief Complaint: Syncope (Near Syncope) Stated Complaint: Sudden onset dizzy/near sycope w/ abd pain x 3wks ED Provider: Martin Bland Discharge Problem: Acute diverticulitis, Syncope Forms Stand Alone Forms: [facility] Prescriptions Prescriptions: No Action ascorbic acid (vitamin C) [Vitamin C] 1,000 mg Tablet 1 g PO QAM RF: 0 Botox 100 unit Recon Soln 1 unit intradermal Q3M RF: 0 potassium chloride 10 mEq tablet extended release 20 meq PO QDD RF: 0 aspirin 81 mg Tablet,Delayed Release (Dr/Ec) 81 mg PO HS RF: 0 lorazepam 0.5 mg tablet 0.5 mg PO HS RF: 0 niacin [Slo-Niacin] 250 mg Tablet Extended Release 250 mg PO HS RF: 0 triamterene-hydrochlorothiazid 37.5-25 mg tablet 1 tab PO QAM RF: 0 irbesartan 150 mg tablet 150 mg PO QAM RF: 0 ezetimibe 10 mg tablet 10 mg PO HS RF: 0 cholecalciferol (vitamin D3) [Vitamin D3] 50 mcg (2,000 unit) Tablet 50 mcg PO QAM RF: 0 Probiotic 15 billion cell Capsule 1 cap PO QAM RF: 0 Referrals Referrals: Rich Drew MD [Primary Care Provider] - Discharge Problem: Syncope Qualifiers: Syncope type: unspecified Qualified Code(s): R55 - Syncope and collapse
--- NOTE | 2019-12-18 14:01 | XRay Report ---
SINGLE VIEW CHEST CLINICAL HISTORY: Visualized weakness. FINDINGS: An AP, portable, upright chest radiograph is compared to study dated 02/26/2017 and correlat ed with abdominal CT dated 12/18/2019. The heart is mildly enlarged noting atherosclerotic calcificati on of the thoracic ureter. The pulmonary vasculature is noncongested. Chronic interstitial thickening is similar to previous. No airspace consolidation or large pleural effusion is identified. Atelectas is is noted at the lung bases. No pneumothorax is seen. The skeletal structures are osteopenic. The b chris thorax is grossly intact. IMPRESSION: Mild cardiac enlargement with no active disease in the chest. ACT 112: Negative or not required by law. Electronically signed by: Leland Quick M.D. 12/18/2019 2:00 PM
--- NOTE | 2019-12-18 14:13 | CT Scan Report ---
ABDOMEN AND PELVIS CT WITH IV CONTRAST CT DOSE: 637.85 mGycm HISTORY: Left lower quadrant abdominal pain. TECHNIQUE: Multiaxial CT images of the abdomen and pelvis were performed following the use of intrave nous contrast. A dose lowering technique was utilized adhering to the principles of ALARA. COMPARISON STUDY: Abdomen and pelvis CT 08/18/2015. FINDINGS: The lung bases are clear. No pneumoperitoneum. No pneumatosis. No suspicious lytic or blast ic osseous lesions. The heart is mildly enlarged. Cholecystectomy. No hepatic masses. Stable ill-defi dutch hypodensities within the spleen with the largest measuring 9 mm. These are technically too small to characterize but likely benign given the long-term stability. Adrenal glands are unremarkable. Sta ble 1 cm cystic focus within the pancreatic head. 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 The bladder is unremarkable. Stable mild fullness within the bilater al renal collecting systems without hydronephrosis. Multiple colonic diverticula. Focal area of bowel wall thickening within the mid sigmoid colon with pericolonic fat stranding. This likely represents an acute diverticulitis. No perforation identified. Suggestion of a small intramural abscess best see n image 300 which measures 1.3 cm. Liquid stool seen within the colon. No evidence for bowel obstruct ion. Normal appendix. No retroperitoneal lymphadenopathy. Normal caliber abdominal aorta. IMPRESSION: 1. Acute diverticulitis within the mid sigmoid colon. There is a possible 1.3 cm intramural abscess a t this location. No perforation. Follow-up colonoscopy is recommended once the diverticulitis has res olved to exclude the less likely possibility of an underlying colonic lesion. 2. No evidence for bowel obstruction. 3. Mild fullness within the bilateral renal collecting systems without hydronephrosis. This is simila r to the prior study. 4. Cholecystectomy. 5. Additional findings as described above. ACT 112: Negative or not required by law. Electronically signed by: Zeus Craven M.D. 12/18/2019 2:12 PM
[2019-12-18 14:28] LABS: Appearance Urine Clear (Clear); Bacteria Urine Automated Negative (Negative); Bilirubin Urine Negative (Negative); Blood Urine Negative (Negative); Color Urine Yellow; Glucose Urine UA Negative (Negative); Ketones Urine Trace (Negative); Leukocyte Esterase Urine Trace (Negative); Nitrite Urine Negative (Negative); Protein Urine Negative (Negative); RBC Urine Automated 0-4 /hpf (0-4); Specific Gravity Urine 1.018 (1.000-1.030); Urobilinogen Urine Negative (Negative)
[2019-12-18] MEDS ORDERED: PIPERACILL/TAZOBAC CONSULT ACTIVE PRN (15:06)
[2019-12-18] MEDS ORDERED: PIPERACILLIN/TAZOBACTAM 4.5 GM/120 ML BAG IV ONE (15:06)
--- NOTE | 2019-12-18 15:21 | Electrocardiogram Report ---
Test Reason : Blood Pressure : / mmHG Vent. Rate : 073 BPM Atrial Rate : 073 BPM P-R Int : 190 ms QRS Dur : 094 ms QT Int : 404 ms P-R-T Axes : 055 -57 041 degrees QTc Int : 445 ms Sinus rhythm with PAC Left axis deviation Incomplete right bundle branch block Abnormal ECG When compared with ECG of 06-AUG-2006 14:39, No significant change was found Confirmed by Edgar Amin ([id number]) on 12/18/2019 3:20:32 PM Referred By: ED Confirmed By:Gary Amin
--- NOTE | 2019-12-18 15:48 | History & Physical Report ---
Date of Service December 18, 2019 Assessment & Plan (1) Acute diverticulitis: Patient is being admitted with complicated diverticulitis. Patient has a small abscess. Will place NPO. Will place on LR IVF. Patient will be placed on ceftriaone and flagyl due to allergies to amoxicillin (rash) will monitor and reassess abscess in 2-3 days. Once pain improves , may consider advancing diet. will need to monitor closely her BM as she has had history of c. diff colitis in the past (1 episode) (2) Syncope: vasovagal likely from pain. will monitor. CT head and neck were negative no further workup (3) Hypertension: resumed ARB. will hold diuretic for the momnet. DVT: lovenox. History of Present Illness Primary Care Provider: Rich Drew MD 79 yo female who comes into the hospital with acute diverticulitis, prior occurance in 2013. Patient states that pain starts in lower left quadrant and radiates to the right lower quadrant. Eating makes the pain worse, and having a bowel movemant makes the pain feel better. The pain is sharp in nature with no radiation and associated with mild nausea. This morning's eppisode was complicated with feeling the need to strain more with her bowel movement, in which upon standing, she made it to the sink washed her hands and started feeling light headed and dizzy. The patient attempted to make it to her bed, but upon reaching it, she fell to the left side into a closet. Her found her and was able to maneuver her out of the closet and upon getting out she passed out again. The and the patient endorsed the patient being diaphoretic following the eppisode. The patient has not experienced passing out before. She states she intermittently gets this pain and has not been this bad. In the ER the patient had a CT abdomen done and received antibiotics. Of note in 2013 following treatment for diverticulities, the patient did have C-DIFF, failed therapy with flagly requiring oral Vancomycin treatment for resolution. Allergies Allergy/AdvReac Type Severity Reaction Status Date / Time No Known Allergies Allergy Verified 12/18/19 13:33 Home Medications Home Medications Medication Instructions Recorded Confirmed Type L. acidophilus-L. rhamnosus 1 cap PO QAM 12/18/19 12/18/19 History [Probiotic] ascorbic acid (vitamin C) [Vitamin 1 g PO QAM 12/18/19 12/18/19 History C] aspirin 81 mg PO HS 12/18/19 12/18/19 History cholecalciferol (vitamin D3) 50 mcg PO QAM 12/18/19 12/18/19 History [Vitamin D3] ezetimibe 10 mg PO HS 12/18/19 12/18/19 History irbesartan 150 mg PO QAM 12/18/19 12/18/19 History lorazepam 0.5 mg PO HS 12/18/19 12/18/19 History niacin [Slo-Niacin] 250 mg PO HS 12/18/19 12/18/19 History onabotulinumtoxinA [Botox] 1 unit INTRADERMAL Q3M 12/18/19 12/18/19 History potassium chloride 20 meq PO QDD 12/18/19 12/18/19 History triamterene-hydrochlorothiazid 1 tab PO QAM 12/18/19 12/18/19 History Past Med/Surg History Medical History (Updated 12/19/19 @ 06:31 by Trace Akbar) C. difficile colitis Hypertension Family History Other Colorectal cancer Ovarian cancer Social History Smoking Status: Former smoker Second Hand Exposure: No; Do You Dip or Chew Tobacco: No; Tobacco Cessation Education Requested by Patient: No Hx Alcohol Use: Yes Alcohol type: wine Hx Substance Use: No Preferred Language: Nigerian Communication Ability: Effective Meteorological Engineer Required: No Beliefs That Will Affect Care: None Current Living Situation: Spouse Other Information That Helps Us Care for You: No Feels Safe at Home: Yes Safety Concerns: Feels Safe At This Time Assistive Devices: Glasses Review of Systems Constitutional: + anorexia; no fever, no chills, no sweats, no fatigue and no malaise Eyes: + seeing flashes; no diplopia, no photophobia, no spots in vision, no tunnel vision and no worsening vision Respiratory: no cough, no chest congestion, no dyspnea, no pain on inspiration, no snoring and no sputum production Cardiovascular: + syncope (as per HIP); no chest pain, no chest pain with activity, no radiating jaw, neck or arm pain, no dyspnea at rest, no dyspnea on exertion, no paroxysmal nocturnal dyspnea, no palpitations and no edema Gastrointestinal: + abdominal pain, + nausea, + cramping, + change in stools and + diarrhea/loose stools; no bloating, no vomiting, no hematemesis, no excessive flatulence, no constipation, no constant urge to pass stools and no melena Genitourinary: no dysuria, no urinary frequency, no urinary hesitancy, no u rinary incontinence and no decreased urination Musculoskeletal: + neck pain (cervical ), + joint pain (to left shoulder ) and + stiffness (to left shoulder); no back pain, no radicular pain, no loss of height, no deformity and no limited range of motion Integumentary: no rash, no lesions, no skin ulcer, no sores, no erythema, no dry skin, no change in skin color and no unusual bruising Neurologic: + falls (as per HPI, otherwise negative for falls. ); no localized weakness, no paralysis, no numbness, no paresthesia, no radiating pain, no tremor(s), no abnormal movements, no seizure-like activity, no headache(s) (bifrontal, associated with abdominal pain), no abnormal speech, no confusion and no memory loss Physical Exam Constitutional: well developed, well nourished and + ill appearing Eyes: PERRL, normal accommodation, EOM intact bilaterally and reactive pupils Neck: normal visual inspection, + neck tender (posterior cervical point tenderness C6-C7) and + nuchal rigidity Respiratory: normal respiratory effort, lungs clear to auscultation normal respiratory effort Auscultation: lungs clear to auscultation bilaterally Cardiovascular: RRR, no murmur, no edema Rate/Rhythm: regular rate Heart Sounds: normal S1 and normal S2 Vessels: + JVD and + carotid bruit Extremities: normal capillary refill Gastrointestinal (Abdomen): Inspection/Auscultation: abdomen normal to inspection, + abdomen distended and normal bowel sounds Percussion/Palpation: + abdomen tender (left lower quadrant) and abdomen soft; no abdominal mass and no pulsatile mass Musculoskeletal: Head/Neck/Chest: normocephalic, head atraumatic and + limited ROM of neck Spine: + limited cervical ROM, + cervical spinal tenderness (as above) and + step off deformity Results & Data Results & Data ([facility]) Vital Signs (Past 12 Hours) Vital Signs Temp Pulse Resp BP Pulse Ox 12/18/19 14:31 86 16 114/86 99 12/18/19 14:30 85 13 99 12/18/19 14:01 68 17 96 12/18/19 14:00 72 17 116/65 96 12/18/19 13:41 22 105/74 12/18/19 13:32 83 20 12/18/19 13:00 86 24 104/58 L 97 12/18/19 12:40 72 20 97 12/18/19 12:31 85 18 99 12/18/19 12:30 82 22 144/69 H 98 12/18/19 12:21 79 18 99 12/18/19 12:19 36.4 C L 76 18 121/75 98 12/18/19 12:17 80 24 121/75 98 Code Status & VTE Plan VTE Prophylaxis Plan VTE Prophylaxis will be ordered: Yes PG Care Time/CCT Total # of Minutes Spent Total Time Spent with Patient: Total time spent is greater than 50% in coordination of care (as documented) at patient's floor/unit and/or counseling patient: Coding Level of Care Code 33648 Initial Inpt Care Lvl 3 Diagnoses Acute diverticulitis K57.92 Syncope R55 Syncope type: unspecified Hypertension I10 Time Spent (min) 45 (1) Syncope Syncope type: unspecified Qualified Code(s): R55 - Syncope and collapse
[2019-12-18] MEDS ORDERED: cefTRIAXone SODIUM 2,000 MG/70 ML BAG IV STA (16:11)
--- NOTE | 2019-12-18 16:49 | XRay Report ---
XR shoulder LT min 2V routine CLINICAL HISTORY: trauma/ fall COMPARISON: None FINDINGS: Alignment of left shoulder is anatomic. No acute fracture. No osseous lesion. 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 IMPRESSION: No acute fracture or dislocation within the left shoulder. ACT 112: Negative or not required by law. Electronically signed by: Tre Limon M.D. 12/18/2019 4:48 PM
[2019-12-18] MEDS: LACTATED RINGER'S 1,000 ML IV SCH (17:00)
[2019-12-18] MEDS: metroNIDAZOLE 500 MG/100 ML BAG IV SCH (17:00)
--- NOTE | 2019-12-18 17:20 | CT Scan Report ---
CT OF THE HEAD WITHOUT CONTRAST CLINICAL HISTORY: fall COMPARISON STUDY: MRI of the brain November 19, 2017. TECHNIQUE: Helical axial images of the head were obtained without IV contrast. Automated exposure con trol was utilized for the study. A dose lowering technique was utilized adhering to the principles o f ALARA. FINDINGS: No acute intracranial hemorrhage, midline shift or mass effect is present. The ventricular system is unremarkable. The basal cisterns are patent. No extra-axial collections are present. There are no findings to suggest acute dural sinus thrombosis or acute territorial infarct. No significant calvarial abnormalities are present. Visualized portions of the sinuses and mastoid air cells are katie ar. IMPRESSION: 1. No acute intracranial findings. 2. No calvarial fracture. ACT 112: Negative or not required by law. Electronically signed by: Tre Limon M.D. 12/18/2019 5:19 PM
--- NOTE | 2019-12-18 17:24 | CT Scan Report ---
CT OF THE CERVICAL SPINE WITHOUT CONTRAST CLINICAL HISTORY: fall COMPARISON STUDY: Cervical spine radiographs October 14, 2018. TECHNIQUE: Helical axial images of the cervical spine were obtained without IV contrast. Sagittal a nd coronal reconstructions were viewed. Automated exposure control was utilized for the study. A do se lowering technique was utilized adhering to the principles of ALARA. FINDINGS: Alignment of the cervical spine is anatomic. Vertebral body heights are maintained. No acut e cervical spine fracture or subluxation is present. There is no prevertebral edema. Facet joints are intact. There is moderate disc space narrowing and osteophytosis at C6-C7. There is mild facet arth rosis. IMPRESSION: No acute cervical spine fracture or subluxation. ACT 112: Negative or not required by law. Electronically signed by: Tre Limon M.D. 12/18/2019 5:23 PM
[2019-12-18] MEDS: LORazepam 0.5 MG TAB PO SCH (20:12)
[2019-12-18] MEDS: ACETAMINOPHEN 325 MG TAB PO PRN (20:12)
[2019-12-18] MEDS: ENOXAPARIN INJ 40 MG/0.4 ML SYR SQ SCH (20:13)
[2019-12-18] MEDS: ASPIRIN 81 MG ECTAB PO SCH (20:13)
[2019-12-18] MEDS ORDERED: NIACIN 250 MG PO SCH (21:00)
[2019-12-19] MEDS: metroNIDAZOLE 500 MG/100 ML BAG IV SCH ×4 (00:41→23:46)
[2019-12-19] MEDS: LACTATED RINGER'S 1,000 ML IV SCH ×2 (05:05→16:52)
[2019-12-19 07:24] LABS: Hematocrit (blood only) 34.9 % (37-47); Hemoglobin 11.9 g/dL (12.0-16.0); Mean Corpuscular Hemoglobin 32.1 pg (25-34); Mean Corpuscular Hgb Conc 34.1 g/dL (32-36); Mean Corpuscular Volume 94.1 fL (80-100); Mean Platelet Volume 10.5 fL (7.4-10.4); Platelet Count 262 K/uL (130-400); RDW Standard Deviation 44.7 fL (36.4-46.3); Red Blood Count 3.71 M/uL (4.2-5.4); White Blood Count 8.49 K/uL (4.8-10.8)
[2019-12-19 07:57] LABS: BUN Creatinine Ratio 23.1 (10-20); Calcium 8.8 mg/dl (8.5-10.1); Creatinine Clr Calc Pharmacy 46.2 ml/min; Est GFR (African American) 71.4; Est GFR (Non-African American) 61.6; Potassium 3.5 mmol/L (3.5-5.1)
[2019-12-19] MEDS: ACETAMINOPHEN 325 MG TAB PO PRN (08:17)
[2019-12-19] MEDS ORDERED: MoRPHine SULFATE 2 MG/ML CARP IV PRN (09:00)
[2019-12-19] MEDS: ONDANSETRON INJ 2 MG/ML 2 ML VIAL IV PRN (09:02)
[2019-12-19] MEDS: IRBESARTAN 150 MG TAB PO SCH (09:02)
[2019-12-19] MEDS ORDERED: BUTALBITAL/ACETAMIN/CAFFEINE TAB PO STA (10:35)
--- NOTE | 2019-12-19 10:36 | Hospitalist Progress Note ---
Date of Service December 19, 2019 Assessment & Plan (1) Acute diverticulitis: * Has had episodes 3-4 times in past. Most recent hospitalization per her account 2016. * Patient is being admitted with complicated diverticulitis. * --> CTA/P with possible 1.3 cm intramural abscess at this location. No perforation. Follow-up colonoscopy is recommended once the diverticulitis has resolved to exclude the less likely possibility of an underlying colonic lesion. * GI consulted -- appreciate assistance. Short term CT follow-up --> if not improved, could consider surgical vs IR for drainage. Also, will need outpt c- scope in follow-up * Continue NPO * Continue LR @ 80cc/hr -- patient with hx CHF -- need to monitor for s/sx volume overload * Ceftriaxone/Flagyl (allergy to amoxicillin) * Zofran prn nausea, morphine prn pain * 4BM yesterday, none today but does have gas. Will need to monitor BMs as she had hx of cdiff colitis in past (2) Syncope: * vasovagal likely from pain. * will monitor. * CT head and neck were negative * no further workup * No further reported (3) Hypertension: * BP stable 112/59 * Irbesartan 150mg daily * Holding Triamterene-HCTZ * Continue to monitor (4) Headache: * Mild this morning -- not migraine. no visual changes noted * Tylenol prn * Compazine prn * Fioricet x 1 * Continue to monitor (5) Blepharospasm of left eye: * Stable, but has been worsened over past several months. Of note, she did stop treatment for double vision but then was resolved and she resumed these * Next injection due end of December (6) Blepharospasm syndrome: * Of L eye -- previously worked up for myasthenia gravis * Gets Q3M botox injections (7) DVT prophylaxis: * Lovenox SQ Admission and Anticipated Discharge Date Admission Date: December 18, 2019 Subjective Patient evaluated this morning. Feeling better than on admission. Mild achy pain to lower abdomen. Four BM yesterday but none reported today. Allergy to Amoxicillin for severe rash/hives. No anaphylaxis noted. Mild left sided headache today. Has gotten migraines with aura in past but not on any abortive medication. Discussed caffeine use -- she typically has two cups of coffee and cup of tea throughout day. Can try dose of fioricet to see if it helps and add compazine prn. History of blepharitis/spasms and follows with specialist Maryer for botox injections, next one due end December. Admits to previous work-up for myasthenia in the past which was negative along with other testing. Has gotten worse over the months and involves left aspect of mouth as well. Nausea improved with ordered medication. No fever, chills (although had prior to admission), chest pain, shortness of breath. Review of Systems Review of Systems: All systems reviewed & are unremarkable except as noted in HPI & below Physical Exam Constitutional: WD/WN, vitals as above Eyes: left eye drooping, L sided facial paralysis -- chronic Neck: normal visual inspection Respiratory: normal respiratory effort, lungs clear to auscultation Cardiovascular: Rate/Rhythm: regular rate and regular rhythm Heart Sounds: no murmur and no cardiac rub Extremities: no edema Gastrointestinal (Abdomen): Inspection/Auscultation: abdomen normal to inspection and normal bowel sounds; abdomen not distended Percussion/Palpation: + abdomen tender (LLQ, minimal with deep palpation) and abdomen soft; no guarding and abdomen not rigid Musculoskeletal: cervical neck tender to palpation pain with flexion/extension Skin: no rashes, warm and dry Psychiatric: Orientation: alert and oriented x 3 Lymphatic: no cervical or axillary lymphadenopathy Results & Data Results & Data ([facility]) Vital Signs (Past 12 Hours) Vital Signs Temp Pulse Resp BP Pulse Ox 12/19/19 07:58 36.6 C 69 18 112/59 L 94 12/18/19 23:29 36.8 C 68 14 106/53 L 94 Laboratory Results 12/19/19 12/19/19 Range/Units 06:30 06:30 WBC 8.49 (4.8-10.8) K/uL RBC 3.71 L (4.2-5.4) M/uL Hgb 11.9 L (12.0-16.0) g/dL Hct 34.9 L (37-47) % MCV 94.1 (80-100) fL MCH 32.1 (25-34) pg MCHC 34.1 (32-36) g/dL RDW Std Deviation 44.7 (36.4-46.3) fL RDW Coeff of Epifanio 13.0 (11.5-14.5) % Plt Count 262 (130-400) K/uL MPV 10.5 H (7.4-10.4) fL Sodium 140 (136-145) mmol/L Potassium 3.5 (3.5-5.1) mmol/L Chloride 108 H (98-107) mmol/L Carbon Dioxide 23 (21-32) mmol/L Anion Gap 9.0 (3-11) BUN 20 H (7-18) mg/dl Creatinine 0.88 D (0.6-1.2) mg/dl Est Cr Clr Drug Dosing 46.2 ml/min Est GFR ( Amer) 71.4 Est GFR (Non-Af Amer) 61.6 BUN/Creatinine Ratio 23.1 H (10-20) Glucose 70 (70-99) mg/dl Calcium 8.8 (8.5-10.1) mg/dl Diagnostic Findings CTA/P IMPRESSION: 1. Acute diverticulitis within the mid sigmoid colon. There is a possible 1.3 cm intramural abscess at this location. No perforation. Follow-up colonoscopy is recommended once the diverticulitis has resolved to exclude the less likely possibility of an underlying colonic lesion. 2. No evidence for bowel obstruction. 3. Mild fullness within the bilateral renal collecting systems without hydronephrosis. This is similar to the prior study. 4. Cholecystectomy. 5. Additional findings as described above. PG Care Time/CCT Total # of Minutes Spent Total Time Spent with Patient: Total time spent is greater than 50% in coordination of care (as documented) at patient's floor/unit and/or counseling patient: Coding Level of Care Code 08280 Subseq Hosp Care Lvl 2 Diagnoses Acute diverticulitis K57.92 Syncope R55 Syncope type: unspecified Hypertension I10 Headache R51.9 Blepharospasm of left eye G24.5 Blepharospasm syndrome G24.5 DVT prophylaxis Z29.9 (1) Syncope Syncope type: unspecified Qualified Code(s): R55 - Syncope and collapse
[2019-12-19] MEDS ORDERED: PROCHLORPERAZINE 5 MG in SYRINGE 4 ML IV PRN (10:45)
--- NOTE | 2019-12-19 10:45 | Gastrointestinal Consultation ---
Date of Consultation December 19, 2019 Assessment & Plan (1) Diverticulitis of intestine with abscess: -Continue IV antibiotic therapy (Currently on Ceftriaxone & Flagyl due to reported antibiotic allergies). -Liquid diet. -Recommend short-term CT follow-up. If no improvement of abscess would have to consider surgical referral vs Interventional Radiology for drainage of the abscess. -Colonoscopy follow-up in 6-8 weeks after acute diverticulitis resolves. Thank you for allowing us to participate in the care of this patient. If you should have any further questions or concerns, do not hesitate to contact us at extension [phone] or [phone]. Supervising Physician Co-Signing Physician Notes Agree with Pat Yu, PAC Abd: Soft, tender in LLQ and RLQ, ND, +BS Continue current therapy Outpatient colonoscopy in 6-8 weeks History of Present Illness Reason for Consultation: Complicated diverticulitis Attending Physician: Prieto Sam MD History of Present Illness Patient is an 79 yo female who presented to [facility] after 2 1/2 weeks of left sided abdominal pain. She notes that while she typically has diarrhea, she began experiencing constipation/incomplete evacuation of her bowels. She reports she made an outpatient appointment for her sharp LLQ pain, but the pain worsened abruptly and she came to the ED. A CT scan indicated a complicated diverticulitis with a 1.3 cm intramural abscess in the sigmoid colon. She has been placed on Ceftriaxone & Flagyl per the primary team (reportedly with Penicillin allergies--severe rash). She reports improvement in her pain at present. She denies LLQ pain. She reports a headache. She notes she is not able to tolerate food. She had an episode of diverticulitis in 2013. A colonoscopy was last performed in 2015 without significant findings. Her WBC count is 8.49. She denies further issues at present. Allergies Allergy/AdvReac Type Severity Reaction Status Date / Time No Known Allergies Allergy Verified 12/18/19 13:33 Home Medications Home Medications Medication Instructions Recorded Confirmed Type L. acidophilus-L. rhamnosus 1 cap PO QAM 12/18/19 12/18/19 History [Probiotic] ascorbic acid (vitamin C) [Vitamin 1 g PO QAM 12/18/19 12/18/19 History C] aspirin 81 mg PO HS 12/18/19 12/18/19 History cholecalciferol (vitamin D3) 50 mcg PO QAM 12/18/19 12/18/19 History [Vitamin D3] ezetimibe 10 mg PO HS 12/18/19 12/18/19 History irbesartan 150 mg PO QAM 12/18/19 12/18/19 History lorazepam 0.5 mg PO HS 12/18/19 12/18/19 History niacin [Slo-Niacin] 250 mg PO HS 12/18/19 12/18/19 History onabotulinumtoxinA [Botox] 1 unit INTRADERMAL Q3M 12/18/19 12/18/19 History potassium chloride 20 meq PO QDD 12/18/19 12/18/19 History triamterene-hydrochlorothiazid 1 tab PO QAM 12/18/19 12/18/19 History Patient History Medical History (Updated 12/19/19 @ 10:41 by Pat Yu PA-C) C. difficile colitis Hypertension Family History Other Colorectal cancer Ovarian cancer Social History Smoking Status: Former smoker Second Hand Exposure: No; Do You Dip or Chew Tobacco: No; Tobacco Cessation Education Requested by Patient: No Hx Alcohol Use: Yes Alcohol type: wine Hx Substance Use: No Preferred Language: Greek Communication Ability: Effective Nut Former Required: No Beliefs That Will Affect Care: None Current Living Situation: Spouse Other Information That Helps Us Care for You: No Feels Safe at Home: Yes Safety Concerns: Feels Safe At This Time Assistive Devices: Glasses Review of Systems Constitutional: no fever and no chills Eyes: no problem reported Respiratory: no cough and no dyspnea Cardiovascular: no chest pain Gastrointestinal: + abdominal pain, + change in bowel habits and + constipation; no nausea, no vomiting and no blood in stools Musculoskeletal: no joint pain Integumentary: no problem reported Neurologic: + headache(s) Psychiatric: no problem reported Physical Exam Constitutional: WD/WN, vitals as above Neck: normal visual inspection Respiratory: normal respiratory effort Cardiovascular: Extremities: no edema Gastrointestinal (Abdomen): Inspection/Auscultation: abdomen normal to inspection; abdomen not distended Percussion/Palpation: + abdomen tender Musculoskeletal: Head/Neck/Chest: normocephalic Skin: no rashes, warm and dry Psychiatric: A+Ox3, euthymic affect Results & Data ([facility]) Vital Signs (Past 12 Hours) Vital Signs Temp Pulse Resp BP Pulse Ox 12/19/19 07:58 36.6 C 69 18 112/59 L 94 12/18/19 23:29 36.8 C 68 14 106/53 L 94 PG Care Time/CCT Total # of Minutes Spent Total Time Spent with Patient: Total time spent is greater than 50% in coordination of care (as documented) at patient's floor/unit and/or counseling patient: Coding Level of Care Code 61591 Initial Inpt Care Lvl 3 Diagnoses Diverticulitis of intestine with abscess K57.80
[2019-12-19] MEDS: cefTRIAXone SODIUM 2,000 MG in DEXTROSE 5% 50 ML IV SCH (16:02)
[2019-12-19] MEDS: ASPIRIN 81 MG ECTAB PO SCH (20:33)
[2019-12-19] MEDS: LORazepam 0.5 MG TAB PO SCH (20:33)
[2019-12-19] MEDS: ENOXAPARIN INJ 40 MG/0.4 ML SYR SQ SCH (20:34)
[2019-12-20] MEDS: ONDANSETRON INJ 2 MG/ML 2 ML VIAL IV PRN (05:23)
[2019-12-20] MEDS: LACTATED RINGER'S 1,000 ML IV SCH ×2 (05:24→17:54)
[2019-12-20 06:33] LABS: Hemoglobin 11.3 g/dL (12.0-16.0); Mean Corpuscular Hemoglobin 30.8 pg (25-34); Mean Corpuscular Hgb Conc 32.3 g/dL (32-36); Mean Corpuscular Volume 95.4 fL (80-100); Mean Platelet Volume 10.3 fL (7.4-10.4); Platelet Count 255 K/uL (130-400); RDW Coefficient of Variation 12.9 % (11.5-14.5); Red Blood Count 3.67 M/uL (4.2-5.4); White Blood Count 8.26 K/uL (4.8-10.8)
[2019-12-20 07:20] LABS: BUN Creatinine Ratio 20.1 (10-20); Calcium 8.5 mg/dl (8.5-10.1); Creatinine Clr Calc Pharmacy 51.6 ml/min; Est GFR (African American) 81.4; Est GFR (Non-African American) 70.2; Magnesium 1.7 mg/dl (1.8-2.4)
[2019-12-20] MEDS: metroNIDAZOLE 500 MG/100 ML BAG IV SCH ×3 (07:51→23:26)
[2019-12-20] MEDS: IRBESARTAN 150 MG TAB PO SCH (07:51)
[2019-12-20] MEDS ORDERED: GLUCAGON FOR INJ 1 MG VIAL SQ PRN (07:51)
--- NOTE | 2019-12-20 08:04 | Hospitalist Progress Note ---
Date of Service December 20, 2019 Assessment & Plan (1) Acute diverticulitis: * Has had episodes 3-4 times in past. Most recent hospitalization per her account 2016. * Patient admitted with complicated diverticulitis --> CTA/P with possible 1.3 cm intramural abscess at this location. No perforation. Follow-up colonoscopy is recommended once the diverticulitis has resolved to exclude the less likely possibility of an underlying colonic lesion. * GI consulted -- appreciate assistance. Short term CT follow-up --> if not improved, could consider surgical vs IR for drainage. Also, will need outpt c- scope in follow-up * TODAY -- Repeat CT with increase to 1.4cm abscess * General surgery consulted for possible intervention -- rec to continue abx at this time given improvement this afternoon and essentially unchanged abscess. * Continue LR @ 80cc/hr -- patient with hx CHF -- need to monitor for s/sx volume overload * Ceftriaxone/Flagyl (allergy to amoxicillin) * Zofran prn nausea, morphine prn pain * 6BM reported today. Cdiff + gene, toxin NEGATIVE * Added lactobacillus for probiotic given diarrhea * general surgery ordering clear liquid diet. can advance to full liquid as tolerated. Pt is lactose intolerant (2) Syncope: * vasovagal likely from pain. * will monitor. * CT head and neck were negative * no further workup * EKG unchanged from 2006 * No further reported (3) Hypertension: * BP stable 113/56 * Irbesartan 150mg daily * Holding Triamterene-HCTZ * Continue to monitor (4) Hypoglycemia: * Glucose 49 on AM labs, 54 on POC * Given apple juice with 79 * Will order BSG Q6 * Continue to monitor * Glucagon ordered if needed (5) Headache: * Mild dull this morning -- not migraine. no visual changes noted. Improved. Will order additional fioricet given improvement yesterday. Could be concussion given fall. CT head negative * Tylenol prn * Compazine prn * Continue to monitor (6) Blepharospasm of left eye: * Stable, but has been worsened over past several months. Of note, she did stop treatment for double vision but then was resolved and she resumed these * Next injection due end of December (7) Blepharospasm syndrome: * Of L eye -- previously worked up for myasthenia gravis * Gets Q3M botox injections (8) DVT prophylaxis: * Lovenox SQ Admission and Anticipated Discharge Date Admission Date: December 18, 2019 Subjective Patient evaluated this morning. She did have some abdominal pain, LLQ dull but increased compared to yesterday. Discussed will repeat CT today to evaluate abscess. Some nausea, controlled with current medications. She did have 6 BMs since yesterday, liquid and yellowish in color. Given hx of cdiff, will collect and test sample. Mild dull left sided headache, much improved from yesterday. Willing to try another dose of Fioricet. No fever or chills but did note she felt clammy and diaphoretic but that was when her blood sugar was <60. She states no further feeling like that since apple juice. No chest pain, shortness of breath, cough, vomiting or dysuria at this time. Review of Systems Review of Systems: All systems reviewed & are unremarkable except as noted in HPI & below Physical Exam Constitutional: well developed and cooperative; no acute distress Eyes: left eye drooping, L sided facial paralysis -- chronic ENMT: mmm Neck: normal visual inspection and trachea midline Respiratory: normal respiratory effort, lungs clear to auscultation Cardiovascular: Rate/Rhythm: regular rate and regular rhythm Heart Sounds: no murmur and no cardiac rub Gastrointestinal (Abdomen): Inspection/Auscultation: abdomen normal to inspection and normal bowel sounds; abdomen not distended Percussion/Palpation: + abdomen tender (RLQ, minimal with deep palpation) and abdomen soft; no guarding and abdomen not rigid Skin: warm, dry Neurologic: moves all extremities and awake Psychiatric: Orientation: alert and oriented x 3 Lymphatic: no cervical or axillary lymphadenopathy Results & Data Results & Data ([facility]) Vital Signs (Past 12 Hours) Vital Signs Temp Pulse Resp BP Pulse Ox 12/19/19 23:15 36.9 C 71 20 103/56 L 93 Laboratory Results 12/20/19 12/20/19 12/20/19 Range/Units 07:27 06:19 06:19 WBC 8.26 (4.8-10.8) K/uL RBC 3.67 L (4.2-5.4) M/uL Hgb 11.3 L (12.0-16.0) g/dL Hct 35.0 L (37-47) % MCV 95.4 (80-100) fL MCH 30.8 (25-34) pg MCHC 32.3 (32-36) g/dL RDW Std Deviation 45.0 (36.4-46.3) fL RDW Coeff of Epifanio 12.9 (11.5-14.5) % Plt Count 255 (130-400) K/uL MPV 10.3 (7.4-10.4) fL Sodium 140 (136-145) mmol/L Potassium 4.0 (3.5-5.1) mmol/L Chloride 109 H (98-107) mmol/L Carbon Dioxide 22 (21-32) mmol/L Anion Gap 9.0 (3-11) BUN 16 (7-18) mg/dl Creatinine 0.79 (0.6-1.2) mg/dl Est Cr Clr Drug Dosing 51.6 ml/min Est GFR ( Amer) 81.4 Est GFR (Non-Af Amer) 70.2 BUN/Creatinine Ratio 20.1 H (10-20) Glucose 49 L* (70-99) mg/dl POC Glucose 54 L* (70-99) mg/dl Calcium 8.5 (8.5-10.1) mg/dl Magnesium 1.7 L (1.8-2.4) mg/dl PG Care Time/CCT Total # of Minutes Spent Total Time Spent with Patient: Total time spent is greater than 50% in coordination of care (as documented) at patient's floor/unit and/or counseling patient: Coding Level of Care Code 47848 Subseq Hosp Care Lvl 3 Diagnoses Acute diverticulitis K57.92 Syncope R55 Syncope type: unspecified Hypertension I10 Hypoglycemia E16.2 Headache R51.9 Blepharospasm of left eye G24.5 Blepharospasm syndrome G24.5 DVT prophylaxis Z29.9 (1) Syncope Syncope type: unspecified Qualified Code(s): R55 - Syncope and collapse
[2019-12-20] MEDS: MAGNESIUM SULFATE / D5W 1 GM/100 ML BAG IV SCH ×2 (09:44→11:56)
[2019-12-20] MEDS ORDERED: BUTALBITAL/ACETAMIN/CAFFEINE TAB PO STA (09:46)
--- NOTE | 2019-12-20 10:55 | Gastroenterology Progress Note ---
Date of Service December 20, 2019 Assessment & Plan (1) Diverticulitis of intestine with abscess: -Continue liquid diet -Await result of CT scan ordered per primary; as previously mentioned--if patient doesn't respond to conservative therapy would need to consider IR involvement for abscess drainage. -Continue IV antibiotics. Consider addition of a probiotic given loose stool while on antibiotic therapy (and C diff history). -Colonoscopy in 6-8 weeks. Admission and Anticipated Discharge Date Admission Date: December 18, 2019 Supervising Physician Co-Signing Physician Notes Agree with Pat Yu, TITO CT scan without change Abd: Soft, Tender LLQ, ND Continue current therapy Subjective Patient is an 79 yo female with acute complicated diverticulitis. She reports some mild LLQ pain this AM. She reports nausea as well. WBC count is within normal limits. She is afebrile. She reports diarrhea since beginning antibiotics. She denies other symptoms. She tells me she is to have a repeat CT scan today per her hospitalist and is awaiting transport for that. Review of Systems Constitutional: no fever and no chills Respiratory: no cough and no dyspnea Cardiovascular: no chest pain Gastrointestinal: + abdominal pain, + nausea and + diarrhea/loose stools Physical Exam Constitutional: well developed and well nourished Respiratory: no respiratory distress Cardiovascular: Extremities: no edema Gastrointestinal (Abdomen): Percussion/Palpation: + abdomen tender Results & Data Results & Data ([facility]) Vital Signs (Past 12 Hours) Vital Signs Temp Pulse Resp BP Pulse Ox 12/20/19 07:35 36.8 C 70 18 113/56 L 94 12/19/19 23:15 36.9 C 71 20 103/56 L 93 PG Care Time/CCT Total # of Minutes Spent Total Time Spent with Patient: Total time spent is greater than 50% in coordination of care (as documented) at patient's floor/unit and/or counseling patient: Coding Level of Care Code 97751 Subseq Hosp Care Lvl 3 Diagnoses Diverticulitis of intestine with abscess K57.80
[2019-12-20] MEDS ORDERED: IOVERSOL 100ml IV ONE (11:13)
[2019-12-20] MEDS: LACTOBACILLUS ACIDOPHILUS 1 GM PACK PO SCH ×2 (12:02→16:49)
--- NOTE | 2019-12-20 12:21 | CT Scan Report ---
CT SCAN OF THE ABDOMEN AND PELVIS WITH IV CONTRAST CLINICAL HISTORY: Diverticulitis and abscess. COMPARISON STUDY: Abdominal CT dated 12/18/2019. TECHNIQUE: Following the IV administration of 94 cc of Optiray 320, CT scan of the abdomen and pelvi s is performed from the lung bases to the proximal femora. Images are reviewed in the axial, sagittal , and coronal planes. IV contrast was administered without complication. A dose lowering technique wa s utilized adhering to the principles of ALARA. CT DOSE: 638.48 mGycm FINDINGS: Lung bases: The heart is enlarged and without pericardial effusion. There are coronary artery calcifi cations. The lung bases are clear noting bibasilar scarring/atelectasis. There is a small hiatal sujey ia. Liver: The contrast-enhanced liver is normal in size, contour, and attenuation. There is no intrahepa tic biliary ductal dilatation. The hepatic veins and portal veins are patent. Fatty infiltration is s een adjacent to the falciform ligament. Gallbladder: Surgically absent noting clips in the gallbladder fossa. Spleen: Normal in size and attenuation. 2 splenic hypodensities measuring up to 10 mm are unchanged a nd statistically of doubtful significance. Pancreas: Unremarkable. Adrenal glands: Nodular thickening of both adrenal glands is unchanged. Kidneys: The contrast enhanced kidneys are normal in size and without hydronephrosis. The kidneys enh ance symmetrically. Abdominal vasculature: The abdominal aorta is normal in course and caliber noting mild to moderate at herosclerotic calcification. Bowel: There is moderate colonic diverticulosis. Wall thickening with pericolonic inflammation is see n involving the sigmoid colon and consistent with acute diverticulitis. This is similar in appearance to the 12/18/2019 examination. A small intramural abscess is again suggested on image #288 and measur es 1.4 cm. No bowel obstruction is seen. Liquid stool is noted in the right colon. The appendix is w ell-visualized and normal. Peritoneum: There is no intraperitoneal free air or abdominal ascites. There is a fat-containing umbi lical hernia. Lymphadenopathy: None. Pelvic viscera: There is a left millimeter bladder calculus. The bladder is otherwise normal as visua lized. The uterus and adnexa are normal as imaged. Skeletal structures: The skeletal structures are osteopenic. Mild to moderate lumbosacral spondylosis is observed. No lytic or blastic lesions are seen. IMPRESSION: 1. There is been no significant change from 12/18/2019. 2. Again seen are findings of acute diverticulitis involving the sigmoid colon. 3. A small intramural abscess is again suggested. No intraperitoneal free air is seen. 4. Bladder calculus. 5. Additional findings as above. ACT 112: Negative or not required by law. Electronically signed by: Leland Quick M.D. 12/20/2019 12:20 PM
--- NOTE | 2019-12-20 13:42 | Surgery Consultation ---
Date of Consultation December 20, 2019 Assessment & Plan (1) Diverticulitis of intestine with abscess: Small abscess is essentially unchanged and exam is benign. WBC remains normal and she is feeling better this afternoon. Keep on IV abx. C. diff toxin pending. Start on clears, can advance to full liquids as jeannine although she is lactose intolerant. GI is planning for outpatient colonoscopy. Supervising Physician Co-Signing Physician Notes as per Shola RAMÍREZ The patient has had a longstanding history of some GI symptoms including polyps in the colon they date back to early 40s where at that time she had a polyp removed and she had been followed fairly regularly having 1 every 2 to 3 years the last was approximately 10 years ago she does not remember who the primary special educator was but she feels it was related to the practice Dr Kaye but it was not . Case experiencing some abdominal pain came in on this December [address] scan confirmed a 1.5 cm wall abscess was treated with antibiotics and a CAT scan was repeated approximately 48 hours later showed no change in the abscess At this time I have no physical findings she started to move her bowels although she has liquid stools She has no white count At this time I would continue treating for acute diverticulitis with a small abscess there is no reason to even entertain interventional radiologist as the abscess is small and abscess even after about 6 cm in size potentially will resolve just with antibiotic treatment Having said that she certainly needs a repeat colonoscopy when the acute diverticulitis resolves and eventually I would recommend electively to proceed with a sigmoid colon resection This was discussed with the patient and her son History of Present Illness Attending Physician: Prieto Sam MD History of Present Illness 79 y/o female with bowel "trouble" (constipation) intermittently over the past few weeks. Two days ago she had a syncopal episode while straining on the toilet and was brought to the ED. She was admitted for diverticulitis and started on rocephin and flagyl due to allergies. She was feeling better, then had multiple (5) liquid stools this morning along with hypoglycemia. Repeat CT today shows similar 1.4 cm intramural abscess. Has been having some diarrhea over the past year, has h/o C. diff, h/o polypectomy and mother from colon CA. Allergies Allergy/AdvReac Type Severity Reaction Status Date / Time No Known Allergies Allergy Verified 12/18/19 13:33 Home Medications Home Medications Medication Instructions Recorded Confirmed Type L. acidophilus-L. rhamnosus 1 cap PO QAM 12/18/19 12/18/19 History [Probiotic] ascorbic acid (vitamin C) [Vitamin 1 g PO QAM 12/18/19 12/18/19 History C] aspirin 81 mg PO HS 12/18/19 12/18/19 History cholecalciferol (vitamin D3) 50 mcg PO QAM 12/18/19 12/18/19 History [Vitamin D3] ezetimibe 10 mg PO HS 12/18/19 12/18/19 History irbesartan 150 mg PO QAM 12/18/19 12/18/19 History lorazepam 0.5 mg PO HS 12/18/19 12/18/19 History niacin [Slo-Niacin] 250 mg PO HS 12/18/19 12/18/19 History onabotulinumtoxinA [Botox] 1 unit INTRADERMAL Q3M 12/18/19 12/18/19 History potassium chloride 20 meq PO QDD 12/18/19 12/18/19 History triamterene-hydrochlorothiazid 1 tab PO QAM 12/18/19 12/18/19 History Patient History Medical History C. difficile colitis Hypertension Family History Other Colorectal cancer Ovarian cancer Social History Smoking Status: Former smoker Second Hand Exposure: No; Do You Dip or Chew Tobacco: No; Tobacco Cessation Education Requested by Patient: No Hx Alcohol Use: Yes Alcohol type: wine Hx Substance Use: No Preferred Language: Macedonian Communication Ability: Effective Territory Development Manager Required: No Beliefs That Will Affect Care: None Current Living Situation: Spouse Other Information That Helps Us Care for You: No Feels Safe at Home: Yes Safety Concerns: Feels Safe At This Time Assistive Devices: None Review of Systems Constitutional: + chills; no fever Gastrointestinal: + abdominal pain, + change in bowel habits, + constipation and + diarrhea/loose stools; no nausea and no vomiting Physical Exam Constitutional: WD/WN, vitals as above Respiratory: normal respiratory effort Cardiovascular: Rate/Rhythm: regular rate Gastrointestinal (Abdomen): Inspection/Auscultation: + abdomen distended (slightly) Percussion/Palpation: + abdomen tender (minimal LLQ) and abdomen soft; no guarding Results & Data ([facility]) Vital Signs (Past 12 Hours) Vital Signs Temp Pulse Resp BP Pulse Ox 12/20/19 07:35 36.8 C 70 18 113/56 L 94 PG Care Time/CCT Total # of Minutes Spent Total Time Spent with Patient: Total time spent is greater than 50% in coordination of care (as documented) at patient's floor/unit and/or counseling patient: Coding Level of Care Code 52075 Initial Inpt Care Lvl 1 Diagnoses Diverticulitis of intestine with abscess K57.80
[2019-12-20 13:43] LABS: Cdiff Antigen Positive; Cdiff Toxin A+B Negative Cdiff Toxin (Negative)
[2019-12-20] MEDS: cefTRIAXone SODIUM 2,000 MG in DEXTROSE 5% 50 ML IV SCH (16:49)
[2019-12-20] MEDS: LORazepam 0.5 MG TAB PO SCH (20:43)
[2019-12-20] MEDS: ENOXAPARIN INJ 40 MG/0.4 ML SYR SQ SCH (20:43)
[2019-12-20] MEDS: ASPIRIN 81 MG ECTAB PO SCH (20:43)
[2019-12-21] MEDS: ONDANSETRON INJ 2 MG/ML 2 ML VIAL IV PRN ×2 (00:59→08:02)
[2019-12-21] MEDS: LACTATED RINGER'S 1,000 ML IV SCH ×2 (05:56→23:30)
--- NOTE | 2019-12-21 07:37 | Surgery Progress Note ---
Date of Service December 21, 2019 Assessment & Plan (1) Diverticulitis of intestine with abscess: Present time continue with antibiotic I would keep her on clear liquids for now may advance to full liquid and slowly advance her diet after that Suspect she will be in the hospital 2 or 3 more days and then I would discharge her for another 7 days of antibiotics certainly can use Cipro and Flagyl and with follow-up in her clinic at this time there is no reason to have any further imaging Admission and Anticipated Discharge Date Admission Date: December 18, 2019 Subjective Today she is complaining of more abdominal discomfort states just does not feel right no emesis or nausea Physical Exam Physical Exam: She is alert coherent no distress The abdomen is softly distended but nontender and no real guarding Results & Data ([facility]) Vital Signs (Past 12 Hours) Vital Signs Temp Pulse Resp BP Pulse Ox 12/20/19 23:15 36.8 C 52 L 18 110/64 94 PG Care Time/CCT Total # of Minutes Spent Total Time Spent with Patient: Total time spent is greater than 50% in coordination of care (as documented) at patient's floor/unit and/or counseling patient: Coding Level of Care Code 35574 Subseq Hosp Care Lvl 3 Diagnoses Diverticulitis of intestine with abscess K57.80
[2019-12-21] MEDS: metroNIDAZOLE 500 MG/100 ML BAG IV SCH ×3 (07:52→22:54)
[2019-12-21] MEDS: LACTOBACILLUS ACIDOPHILUS 1 GM PACK PO SCH (07:53)
[2019-12-21] MEDS: IRBESARTAN 150 MG TAB PO SCH (07:53)
[2019-12-21 08:01] LABS: Basophils # (auto) 0.04 K/uL (0-0.2); Basophils % (auto) 0.7 %; Eosinophils # (auto) 0.44 K/uL (0-0.5); Eosinophils % (auto) 8.2 %; Hematocrit (blood only) 34.8 % (37-47); Hemoglobin 11.2 g/dL (12.0-16.0); Immature Granulocytes # (auto) 0.02 K/uL (0.00-0.02); Immature Granulocytes % (auto) 0.4 %; Lymphocytes % (auto) 16.8 %; Mean Corpuscular Hemoglobin 30.4 pg (25-34); Mean Corpuscular Hgb Conc 32.2 g/dL (32-36); Mean Corpuscular Volume 94.3 fL (80-100); Mean Platelet Volume 10.4 fL (7.4-10.4); Monocytes # (auto) 0.38 K/uL (0.11-0.59); Monocytes % (auto) 7.1 %; Neutrophils # (auto) 3.58 K/uL (1.4-6.5); Neutrophils % (auto) 66.8 %; Platelet Count 273 K/uL (130-400); RDW Coefficient of Variation 12.9 % (11.5-14.5); RDW Standard Deviation 44.6 fL (36.4-46.3); Red Blood Count 3.69 M/uL (4.2-5.4); White Blood Count 5.36 K/uL (4.8-10.8)
[2019-12-21 08:37] LABS: Albumin Level 2.7 gm/dl (3.4-5.0); BUN Creatinine Ratio 10.8 (10-20); Calcium 8.7 mg/dl (8.5-10.1); Creatinine Clr Calc Pharmacy 52.6 ml/min; Est GFR (African American) 82.6; Est GFR (Non-African American) 71.3; Magnesium 1.8 mg/dl (1.8-2.4); Potassium 3.4 mmol/L (3.5-5.1)
[2019-12-21 08:40] LABS: Albumin Globulin Ratio 0.9 (0.9-2); Bilirubin,Total 0.2 mg/dl (0.2-1); Globulin 3.2 gm/dl (2.5-4.0); Total Protein 5.9 gm/dl (6.4-8.2)
[2019-12-21] MEDS ORDERED: POTASSIUM CHLORIDE CRTAB 20 MEQ TABCR PO STA (08:56)
[2019-12-21] MEDS: MAGNESIUM SULFATE / D5W 1 GM/100 ML BAG IV SCH ×2 (09:23→13:27)
--- NOTE | 2019-12-21 10:02 | Hospitalist Progress Note ---
Date of Service December 21, 2019 Assessment & Plan (1) Acute diverticulitis: * Has had episodes 3-4 times in past. Most recent hospitalization per her account 2016. * Patient admitted with complicated diverticulitis --> CTA/P with possible 1.3 cm intramural abscess at this location. No perforation. Follow-up colonoscopy is recommended once the diverticulitis has resolved to exclude the less likely possibility of an underlying colonic lesion. * GI consulted -- appreciate assistance. Short term CT follow-up as below. Per surgery, no need to even consider IR/drainage for small abscess * Repeat CT with increase to 1.4cm abscess * General surgery consulted -- rec to continue abx at this time given improvement and essentially unchanged abscess. * Continue LR @ 80cc/hr -- patient with hx CHF -- need to monitor for s/sx volume overload, decreased to 60cc/hr now that taking some PO * Ceftriaxone/Flagyl (allergy to amoxicillin) --> switched from Ceftriaxone to Cipro and will need Cipro/Flagyl for at least another 7 days per general surgery. * Zofran prn nausea, morphine prn pain * 4BM reported today. Cdiff + gene, toxin NEGATIVE. Repeat if continued diarrhea * Added lactobacillus for probiotic given diarrhea but switched to pill per pt request * general surgery ordering clear liquid diet. can advance to full liquid as tolerated. Pt is lactose intolerant. will keep on clears for now and possible full liquid later tonight * Also, will need outpt c-scope in follow-up (2) Syncope: * vasovagal likely from pain. * will monitor. * CT head and neck were negative * no further workup * EKG unchanged from 2006 * No further reported (3) Hypertension: * BP stable 125/75 * Irbesartan 150mg daily * Continue holding Triamterene-HCTZ * Continue to monitor (4) Hypoglycemia: * Glucose 49 on AM labs, 54 on POC on 12/19 * Given apple juice with 79 * BSG Q6 with no further events * Glucagon ordered if needed * Continue to monitor (5) Headache: * Mild dull morning of 12/19 -- not migraine. no visual changes noted. Improved. Order additional fioricet given improvement yesterday. CT head negative. RESOLVED * Tylenol, compazine prn * Continue to monitor (6) Blepharospasm of left eye: * Stable, but has been worsened over past several months. Of note, she did stop treatment for double vision but then was resolved and she resumed these * Next injection due end of December (7) Blepharospasm syndrome: * Of L eye -- previously worked up for myasthenia gravis * Gets Q3M botox injections (8) DVT prophylaxis: * Lovenox SQ Admission and Anticipated Discharge Date Admission Date: December 18, 2019 Subjective Patient evaluated this morning. States she had not been feeling quite right this morning but that has improved. Some nausea and cramping with 4 episodes of diarrhea this morning. Will repeat cdiff if continued BMs given history. Able to tolerate some clear liquids but that does cause some issues. Will not advance diet just yet but possibly for dinner. Patient denies fever, chills, chest pain, shortness of breath, dysuria at this time. Headache resolved. Would also like probiotic in pill instead of powder/liquid if possible. Review of Systems Review of Systems: All systems reviewed & are unremarkable except as noted in HPI & below Physical Exam Constitutional: well developed and cooperative; no acute distress Eyes: + anicteric sclerae left eye drooping, L sided facial paralysis -- chronic ENMT: mmm Neck: normal visual inspection and trachea midline Respiratory: normal respiratory effort, lungs clear to auscultation Cardiovascular: Rate/Rhythm: regular rate and regular rhythm Heart Sounds: no murmur and no cardiac rub Gastrointestinal (Abdomen): Inspection/Auscultation: abdomen normal to inspection, + abdomen distended and normal bowel sounds Percussion/Palpation: abdomen soft; abdomen nontender, no guarding and abdomen not rigid Skin: warm, dry Neurologic: moves all extremities and awake Psychiatric: Orientation: alert and oriented x 3 Lymphatic: no cervical or axillary lymphadenopathy Results & Data Results & Data ([facility]) Vital Signs (Past 12 Hours) Vital Signs Temp Pulse Resp BP BP Pulse Ox 12/21/19 07:39 36.8 C 55 L 16 125/75 93 12/20/19 23:15 36.8 C 52 L 18 110/64 94 Laboratory Results 12/21/19 12/21/19 12/21/19 Range/Units 12:12 07:33 07:33 WBC 5.36 (4.8-10.8) K/uL RBC 3.69 L (4.2-5.4) M/uL Hgb 11.2 L (12.0-16.0) g/dL Hct 34.8 L (37-47) % MCV 94.3 (80-100) fL MCH 30.4 (25-34) pg MCHC 32.2 (32-36) g/dL RDW Std Deviation 44.6 (36.4-46.3) fL RDW Coeff of Epifanio 12.9 (11.5-14.5) % Plt Count 273 (130-400) K/uL MPV 10.4 (7.4-10.4) fL Immature Gran % (Auto) 0.4 % Neut % (Auto) 66.8 % Lymph % (Auto) 16.8 % [place] % (Auto) 7.1 % Eos % (Auto) 8.2 % Baso % (Auto) 0.7 % Neut # (Auto) 3.58 (1.4-6.5) K/uL Lymph # (Auto) 0.90 L (1.2-3.4) K/uL [place] # (Auto) 0.38 (0.11-0.59) K/uL Eos # (Auto) 0.44 (0-0.5) K/uL Baso # (Auto) 0.04 (0-0.2) K/uL Immature Gran # (Auto) 0.02 (0.00-0.02) K/uL Sodium 142 (136-145) mmol/L Potassium 3.4 L (3.5-5.1) mmol/L Chloride 107 (98-107) mmol/L Carbon Dioxide 27 (21-32) mmol/L Anion Gap 7.0 (3-11) BUN 8 D (7-18) mg/dl Creatinine 0.78 (0.6-1.2) mg/dl Est Cr Clr Drug Dosing 52.6 ml/min Est GFR ( Amer) 82.6 Est GFR (Non-Af Amer) 71.3 BUN/Creatinine Ratio 10.8 (10-20) Glucose 76 (70-99) mg/dl POC Glucose 124 H (70-99) mg/dl Calcium 8.7 (8.5-10.1) mg/dl Magnesium 1.8 (1.8-2.4) mg/dl Total Bilirubin 0.2 (0.2-1) mg/dl AST 21 (15-37) U/L ALT 12 (12-78) U/L Alkaline Phosphatase 82 (45-117) U/L Total Protein 5.9 L (6.4-8.2) gm/dl Albumin 2.7 L (3.4-5.0) gm/dl Globulin 3.2 (2.5-4.0) gm/dl Albumin/Globulin Ratio 0.9 (0.9-2) Stl C.difficile Tox A&B (Negative) 12/21/19 12/20/19 12/20/19 Range/Units 05:59 23:52 18:23 WBC (4.8-10.8) K/uL RBC (4.2-5.4) M/uL Hgb (12.0-16.0) g/dL Hct (37-47) % MCV (80-100) fL MCH (25-34) pg MCHC (32-36) g/dL RDW Std Deviation (36.4-46.3) fL RDW Coeff of Epifanio (11.5-14.5) % Plt Count (130-400) K/uL MPV (7.4-10.4) fL Immature Gran % (Auto) % Neut % (Auto) % Lymph % (Auto) % [place] % (Auto) % Eos % (Auto) % Baso % (Auto) % Neut # (Auto) (1.4-6.5) K/uL Lymph # (Auto) (1.2-3.4) K/uL [place] # (Auto) (0.11-0.59) K/uL Eos # (Auto) (0-0.5) K/uL Baso # (Auto) (0-0.2) K/uL Immature Gran # (Auto) (0.00-0.02) K/uL Sodium (136-145) mmol/L Potassium (3.5-5.1) mmol/L Chloride (98-107) mmol/L Carbon Dioxide (21-32) mmol/L Anion Gap (3-11) BUN (7-18) mg/dl Creatinine (0.6-1.2) mg/dl Est Cr Clr Drug Dosing ml/min Est GFR ( Amer) Est GFR (Non-Af Amer) BUN/Creatinine Ratio (10-20) Glucose (70-99) mg/dl POC Glucose 76 70 149 H (70-99) mg/dl Calcium (8.5-10.1) mg/dl Magnesium (1.8-2.4) mg/dl Total Bilirubin (0.2-1) mg/dl AST (15-37) U/L ALT (12-78) U/L Alkaline Phosphatase (45-117) U/L Total Protein (6.4-8.2) gm/dl Albumin (3.4-5.0) gm/dl Globulin (2.5-4.0) gm/dl Albumin/Globulin Ratio (0.9-2) Stl C.difficile Tox A&B (Negative) 12/20/19 Range/Units 10:50 WBC (4.8-10.8) K/uL RBC (4.2-5.4) M/uL Hgb (12.0-16.0) g/dL Hct (37-47) % MCV (80-100) fL MCH (25-34) pg MCHC (32-36) g/dL RDW Std Deviation (36.4-46.3) fL RDW Coeff of Epifanio (11.5-14.5) % Plt Count (130-400) K/uL MPV (7.4-10.4) fL Immature Gran % (Auto) % Neut % (Auto) % Lymph % (Auto) % [place] % (Auto) % Eos % (Auto) % Baso % (Auto) % Neut # (Auto) (1.4-6.5) K/uL Lymph # (Auto) (1.2-3.4) K/uL [place] # (Auto) (0.11-0.59) K/uL Eos # (Auto) (0-0.5) K/uL Baso # (Auto) (0-0.2) K/uL Immature Gran # (Auto) (0.00-0.02) K/uL Sodium (136-145) mmol/L Potassium (3.5-5.1) mmol/L Chloride (98-107) mmol/L Carbon Dioxide (21-32) mmol/L Anion Gap (3-11) BUN (7-18) mg/dl Creatinine (0.6-1.2) mg/dl Est Cr Clr Drug Dosing ml/min Est GFR ( Amer) Est GFR (Non-Af Amer) BUN/Creatinine Ratio (10-20) Glucose (70-99) mg/dl POC Glucose (70-99) mg/dl Calcium (8.5-10.1) mg/dl Magnesium (1.8-2.4) mg/dl Total Bilirubin (0.2-1) mg/dl AST (15-37) U/L ALT (12-78) U/L Alkaline Phosphatase (45-117) U/L Total Protein (6.4-8.2) gm/dl Albumin (3.4-5.0) gm/dl Globulin (2.5-4.0) gm/dl Albumin/Globulin Ratio (0.9-2) Stl C.difficile Tox A&B Negative Cdiff Toxin (Negative) PG Care Time/CCT Total # of Minutes Spent Total Time Spent with Patient: Total time spent is greater than 50% in coordination of care (as documented) at patient's floor/unit and/or counseling patient: Coding Level of Care Code 08352 Subseq Hosp Care Lvl 2 Diagnoses Acute diverticulitis K57.92 Syncope R55 Syncope type: unspecified Hypertension I10 Hypoglycemia E16.2 Headache R51.9 Blepharospasm of left eye G24.5 Blepharospasm syndrome G24.5 DVT prophylaxis Z29.9 (1) Syncope Syncope type: unspecified Qualified Code(s): R55 - Syncope and collapse
[2019-12-21] MEDS: CIPROFLOXACIN / D5W 400 MG/200 ML BAG IV SCH ×2 (11:26→20:55)
[2019-12-21] MEDS: ADVANCED PROBIOTIC 1250 MG CAPSULE PO SCH (11:26)
[2019-12-21] MEDS ORDERED: POTASSIUM PHOS 3 MMOL/1 ML INFUSION IV STA (14:49)
[2019-12-21] MEDS ORDERED: POTASSIUM PHOSPHATE 21 MMOL in SODIUM CHLORIDE 0.9% 500 ML IV ONE (15:30)
[2019-12-21] MEDS: ASPIRIN 81 MG ECTAB PO SCH (20:55)
[2019-12-21] MEDS: LORazepam 0.5 MG TAB PO SCH (20:55)
[2019-12-21] MEDS: ENOXAPARIN INJ 40 MG/0.4 ML SYR SQ SCH (20:56)
[2019-12-21 21:45] LABS: Cdiff Antigen Negative; Cdiff Toxin A+B Negative Cdiff Toxin (Negative)
[2019-12-22 05:44] LABS: Hematocrit (blood only) 32.8 % (37-47); Hemoglobin 10.7 g/dL (12.0-16.0); Mean Corpuscular Hemoglobin 30.7 pg (25-34); Mean Corpuscular Hgb Conc 32.6 g/dL (32-36); Mean Platelet Volume 10.3 fL (7.4-10.4); Platelet Count 225 K/uL (130-400); RDW Coefficient of Variation 13.1 % (11.5-14.5); RDW Standard Deviation 44.9 fL (36.4-46.3); Red Blood Count 3.49 M/uL (4.2-5.4); White Blood Count 4.56 K/uL (4.8-10.8)
[2019-12-22 06:12] LABS: Albumin Level 2.5 gm/dl (3.4-5.0); BUN Creatinine Ratio 6.8 (10-20); Creatinine Clr Calc Pharmacy 56.9 ml/min; Est GFR (Non-African American) 78.5; Magnesium 1.8 mg/dl (1.8-2.4); Potassium 3.7 mmol/L (3.5-5.1)
[2019-12-22 06:20] LABS: Bilirubin,Total 0.3 mg/dl (0.2-1); Globulin 2.5 gm/dl (2.5-4.0); Phosphorus 2.7 mg/dl (2.5-4.9)
[2019-12-22] MEDS: metroNIDAZOLE 500 MG/100 ML BAG IV SCH ×2 (07:45→15:53)
--- NOTE | 2019-12-22 08:01 | Surgery Progress Note ---
Date of Service December 22, 2019 Assessment & Plan (1) Diverticulitis of intestine with abscess: can try low fiber diet continue IV abx Admission and Anticipated Discharge Date Admission Date: December 18, 2019 Subjective diarrhea after dinner ? from full liquids, no pain Physical Exam Gastrointestinal (Abdomen): Percussion/Palpation: abdomen soft; abdomen nontender Results & Data ([facility]) Vital Signs (Past 12 Hours) Vital Signs Temp Pulse Resp BP BP Pulse Ox 12/22/19 07:56 37.0 C 66 20 149/75 H 94 12/21/19 23:26 37.0 C 57 L 14 131/63 96 PG Care Time/CCT Total # of Minutes Spent Total Time Spent with Patient: Total time spent is greater than 50% in coor dination of care (as documented) at patient's floor/unit and/or counseling patient: Coding Level of Care Code 84422 Subseq Hosp Care Lvl 1 Diagnoses Diverticulitis of intestine with abscess K57.80
[2019-12-22] MEDS: CIPROFLOXACIN / D5W 400 MG/200 ML BAG IV SCH ×2 (08:52→20:44)
[2019-12-22] MEDS: ADVANCED PROBIOTIC 1250 MG CAPSULE PO SCH (08:53)
[2019-12-22] MEDS: IRBESARTAN 150 MG TAB PO SCH (08:53)
--- NOTE | 2019-12-22 09:20 | Hospitalist Progress Note ---
Date of Service December 22, 2019 Assessment & Plan (1) Acute diverticulitis: * Has had episodes 3-4 times in past. Most recent hospitalization per her account 2016. * Patient admitted with complicated diverticulitis --> CTA/P with possible 1.3 cm intramural abscess at this location. No perforation. Follow-up colonoscopy is recommended once the diverticulitis has resolved to exclude the less likely possibility of an underlying colonic lesion. * GI consulted -- appreciate assistance. Short term CT follow-up as below. Per surgery, no need to even consider IR/drainage for small abscess * Repeat CT with increase to 1.4cm abscess * General surgery consulted -- rec to continue abx at this time given improvement and essentially unchanged abscess. * Continue LR @ 80cc/hr -- patient with hx CHF -- need to monitor for s/sx volume overload, decreased to 60cc/hr now that taking some PO * Ceftriaxone/Flagyl (allergy to amoxicillin) --> switched from Ceftriaxone to Cipro and will need Cipro/Flagyl for at least another 7 days per general surgery (on day 2) * Zofran prn nausea, morphine prn pain * 4BM reported today. Cdiff + gene, toxin NEGATIVE. Repeat also negative. Continue to monitor closely * Added lactobacillus for probiotic given diarrhea but switched to pill per pt request * general surgery advanced to low fiber diet. of note, Pt is lactose intolerant. * Also, will need outpt c-scope in follow-up (2) Syncope: * vasovagal likely from pain. CT head and neck were negative * EKG unchanged from 2006 * No further reported but patient did express some sensation/funny feeling in chest/palpitations this morning. * EKG with incomplete BBB no longer present, bradycardia. * Trop initially negative on admission. * Repeat trop today 0.028 -- trend. If continues to increase or if patient with repeat symptoms would consider tx to tele for closer monitoring * Repeat ECHO ordered and cardiology consulted -- pt does have history of mitral valve prolapse and is followed by her PCP (3) Hypertension: * BP stable 125/75 * Irbesartan 150mg daily resume in AM * Continue holding Triamterene-HCTZ * Continue to monitor (4) Hypoglycemia: * Glucose 49 on AM labs, 54 on POC on 12/19 * Given apple juice with 79 * BSG Q6 with no further events * Glucagon ordered if needed * Continue to monitor (5) Headache: * Mild dull morning of 12/19 -- not migraine. no visual changes noted. Improved. Order additional fioricet given improvement yesterday. CT head negative. RESOLVED * Tylenol, compazine prn * Continue to monitor (6) Blepharospasm of left eye: * Stable, but has been worsened over past several months. Of note, she did stop treatment for double vision but then was resolved and she resumed these * Next injection due end of December (7) Blepharospasm syndrome: * Of L eye -- previously worked up for myasthenia gravis * Gets Q3M botox injections (8) Ear pain, right: * No tragus/pinna tenderness. Exam does show significant cerumen. No erythema noted * Ordered debrox -- repeat eval in AM (9) Chest pressure: * See above. Does have history of anxiety and thought previous episodes over the past month related to that as well as they resolved on their own (10) Hypophosphatemia: * Added to labs yesterday AM and resulted critically low 0.9 -- ordered IV replacement and repeat wnl (11) DVT prophylaxis: * Lovenox SQ Admission and Anticipated Discharge Date Admission Date: December 18, 2019 Subjective Patient evaluated this morning. Did have some diarrhea last night after pudding but improved today. Did have 4BM today so far but overall improved in quantity and frequency. Cdiff negative x 2 but + for gene and placed on contact precautions for diarrhea. No further headache. She did have a slightly funny feeling in her chest this morning that she states was difficult to describe. No chest pain, but more of a fluttering. Does have a history of mitral valve prolapse and previous work-up with negative stress test. Will obtain trop and EKG to ensure no changes. No abdominal pain or nausea noted currently but did have a little discomfort following low fiber diet. Will see how she tolerates for today and continue current treatment. Discussed she will need follow up outpatient and discussed possible elective resection as previously recommended. Patient agreeable. No fever, chills, shortness of breath, cough at this time. When further discussed symptoms of pressure, she does note she had been getting discomfort/palpitations at night, increased over the past month as far as frequency. Lasting anywhere from seconds to minutes with complete resolution without intervention. No sob with exertion/dyspnea noted. She notes additionally that she is having right sided neck discomfort today which she is unsure if from the fall [employer] or something related to her ear. She is unable to determine if these symptoms were noted at same time/prior to her syncopal episode prior to admission from severe abdominal pain causing what was thought to be vasovagal episode. Discussed bump in troponin and that we will consult cardiology and repeat ECHO given it has been years in pt with hx MVP. Review of Systems Review of Systems: All systems reviewed & are unremarkable except as noted in HPI & below Physical Exam Constitutional: well developed and cooperative; no acute distress Eyes: + anicteric sclerae ENMT: left eye drooping, L sided facial paralysis -- chronic R ear with significant cerumen. pinna/tragus non-tender to palpation neck non-tender to palpation, no increased pain with flexion/extension Neck: normal visual inspection and trachea midline Respiratory: normal respiratory effort, lungs clear to auscultation Cardiovascular: Rate/Rhythm: regular rate and regular rhythm Heart Sounds: + murmur (mid systolic); no cardiac rub Gastrointestinal (Abdomen): Inspection/Auscultation: abdomen normal to inspection and + hyperactive bowel sounds; abdomen not distended Percussion/Palpation: abdomen soft; abdomen nontender, no guarding and abdomen not rigid Skin: warm, dry Neurologic: moves all extremities and awake Psychiatric: Orientation: alert and oriented x 3 Lymphatic: no cervical or axillary lymphadenopathy Results & Data Results & Data ([facility]) Vital Signs (Past 12 Hours) Vital Signs Temp Pulse Resp BP BP Pulse Ox 12/22/19 07:56 37.0 C 66 20 149/75 H 94 12/21/19 23:26 37.0 C 57 L 14 131/63 96 Laboratory Results 12/22/19 12/22/19 12/22/19 Range/Units 12:16 11:03 06:07 WBC (4.8-10.8) K/uL RBC (4.2-5.4) M/uL Hgb (12.0-16.0) g/dL Hct (37-47) % MCV (80-100) fL MCH (25-34) pg MCHC (32-36) g/dL RDW Std Deviation (36.4-46.3) fL RDW Coeff of Epifanio (11.5-14.5) % Plt Count (130-400) K/uL MPV (7.4-10.4) fL Sodium (136-145) mmol/L Potassium (3.5-5.1) mmol/L Chloride (98-107) mmol/L Carbon Dioxide (21-32) mmol/L Anion Gap (3-11) BUN (7-18) mg/dl Creatinine (0.6-1.2) mg/dl Est Cr Clr Drug Dosing ml/min Est GFR ( Amer) Est GFR (Non-Af Amer) BUN/Creatinine Ratio (10-20) Glucose (70-99) mg/dl POC Glucose 88 77 (70-99) mg/dl Calcium (8.5-10.1) mg/dl Phosphorus (2.5-4.9) mg/dl Magnesium (1.8-2.4) mg/dl Total Bilirubin (0.2-1) mg/dl AST (15-37) U/L ALT (12-78) U/L Alkaline Phosphatase (45-117) U/L Troponin I 0.028 (0-0.045) ng/ml Total Protein (6.4-8.2) gm/dl Albumin (3.4-5.0) gm/dl Globulin (2.5-4.0) gm/dl Albumin/Globulin Ratio (0.9-2) Stl C. diff Tox B Gene (Neg) Stl C.difficile Tox A&B (Negative) 12/22/19 12/22/19 12/22/19 Range/Units 05:24 05:24 00:08 WBC 4.56 L (4.8-10.8) K/uL RBC 3.49 L (4.2-5.4) M/uL Hgb 10.7 L (12.0-16.0) g/dL Hct 32.8 L (37-47) % MCV 94.0 (80-100) fL MCH 30.7 (25-34) pg MCHC 32.6 (32-36) g/dL RDW Std Deviation 44.9 (36.4-46.3) fL RDW Coeff of Epifanio 13.1 (11.5-14.5) % Plt Count 225 (130-400) K/uL MPV 10.3 (7.4-10.4) fL Sodium 144 (136-145) mmol/L Potassium 3.7 (3.5-5.1) mmol/L Chloride 111 H (98-107) mmol/L Carbon Dioxide 28 (21-32) mmol/L Anion Gap 5.0 (3-11) BUN 5 L (7-18) mg/dl Creatinine 0.72 (0.6-1.2) mg/dl Est Cr Clr Drug Dosing 56.9 ml/min Est GFR ( Amer) 91.0 Est GFR (Non-Af Amer) 78.5 BUN/Creatinine Ratio 6.8 L (10-20) Glucose 79 (70-99) mg/dl POC Glucose 88 (70-99) mg/dl Calcium 8.0 L (8.5-10.1) mg/dl Phosphorus 2.7 D (2.5-4.9) mg/dl Magnesium 1.8 (1.8-2.4) mg/dl Total Bilirubin 0.3 (0.2-1) mg/dl AST 22 (15-37) U/L ALT 16 (12-78) U/L Alkaline Phosphatase 73 (45-117) U/L Troponin I (0-0.045) ng/ml Total Protein 5.0 L (6.4-8.2) gm/dl Albumin 2.5 L (3.4-5.0) gm/dl Globulin 2.5 (2.5-4.0) gm/dl Albumin/Globulin Ratio 1.0 (0.9-2) Stl C. diff Tox B Gene (Neg) Stl C.difficile Tox A&B (Negative) 12/21/19 12/21/19 Range/Units Unknown 18:14 WBC (4.8-10.8) K/uL RBC (4.2-5.4) M/uL Hgb (12.0-16.0) g/dL Hct (37-47) % MCV (80-100) fL MCH (25-34) pg MCHC (32-36) g/dL RDW Std Deviation (36.4-46.3) fL RDW Coeff of Epifanio (11.5-14.5) % Plt Count (130-400) K/uL MPV (7.4-10.4) fL Sodium (136-145) mmol/L Potassium (3.5-5.1) mmol/L Chloride (98-107) mmol/L Carbon Dioxide (21-32) mmol/L Anion Gap (3-11) BUN (7-18) mg/dl Creatinine (0.6-1.2) mg/dl Est Cr Clr Drug Dosing ml/min Est GFR ( Amer) Est GFR (Non-Af Amer) BUN/Creatinine Ratio (10-20) Glucose (70-99) mg/dl POC Glucose 98 (70-99) mg/dl Calcium (8.5-10.1) mg/dl Phosphorus (2.5-4.9) mg/dl Magnesium (1.8-2.4) mg/dl Total Bilirubin (0.2-1) mg/dl AST (15-37) U/L ALT (12-78) U/L Alkaline Phosphatase (45-117) U/L Troponin I (0-0.045) ng/ml Total Protein (6.4-8.2) gm/dl Albumin (3.4-5.0) gm/dl Globulin (2.5-4.0) gm/dl Albumin/Globulin Ratio (0.9-2) Stl C. diff Tox B Gene Positive Cdiff Gene H (Neg) Stl C.difficile Tox A&B Negative Cdiff Toxin (Negative) PG Care Time/CCT Total # of Minutes Spent Total Time Spent with Patient: Total time spent is greater than 50% in coordination of care (as documented) at patient's floor/unit and/or counseling patient: Coding Level of Care Code 73287 Subseq Hosp Care Lvl 3 Diagnoses Acute diverticulitis K57.92 Syncope R55 Syncope type: unspecified Hypertension I10 Hypoglycemia E16.2 Headache R51.9 Blepharospasm of left eye G24.5 Blepharospasm syndrome G24.5 Ear pain, right H92.01 Chest pressure R07.89 Hypophosphatemia E83.39 DVT prophylaxis Z29.9 (1) Syncope Syncope type: unspecified Qualified Code(s): R55 - Syncope and collapse
[2019-12-22] MEDS: CARBAMIDE PEROXIDE 6.5% 15 ML BTL OT SCH ×2 (12:00→20:43)
--- NOTE | 2019-12-22 16:51 | XCELERA ---
[id number]
--- NOTE | 2019-12-22 17:00 | Cardiology Consultation ---
Date of Consultation December 22, 2019 Assessment & Plan (1) Palpitations: She has a sense of fleeting palpitation that is likely related to documented PACs. With a structurally normal heart and the absence of other cardiac symptoms I do not believe this requires any additional evaluation. Should her symptoms become more bothersome or she has sustained episodes of palpitations outpatient monitoring could be performed. No indication for anticoagulation. (2) Syncope: The episode leading up to her admission appears to be vagally mediated. She just finished having a bowel movement. She had a prodrome and afterwards felt very weak and was noted to be pale. This is quite consistent with a vagally mediated episode. Given her structurally normal heart in the absence of other cardiac symptoms I do not believe she requires any additional evaluation. History of Present Illness Reason for Consultation: Palpitations Requesting Physician: Terrie Attending Physician: Prieto Sam MD History of Present Illness The patient is an 79-year-old woman without a known history of cardiac disease who was admitted for symptoms of abdominal pain and diagnosed with diverticulitis. She has been receiving medical therapy with improvement in her symptoms of abdominal discomfort and diarrhea. She reported a sense of palpitation to her medical team this morning. This apparently occurred last evening. It is described as a sense of a heart skipping. She also uses the term flutter. Is very fleeting in nature and not associated with other symptoms. She states she has had this sensation for several months. Generally is noticeable only in the evenings. It perhaps is more frequent recently. She had previously been a very active individual. She is able to walk and perform moderate activity without significant symptom. At ascending stairs or inclines does produce a sense of dyspnea which is mild and not limiting. No exertional chest discomfort. No chest discomfort at rest. She denies dizziness lightheade dness. She did suffer a syncopal episode leading up to her admission. This occurred immediately after having a bowel movement and straining. She had some acute abdominal discomfort and attempted to make it to her bed. She apparently passed out of the closet. She was noted by her to be pale and diaphoretic. He attempted to get her back to bed when she lost consciousness again. She was quite fatigued afterwards. Allergies Allergy/AdvReac Type Severity Reaction Status Date / Time No Known Allergies Allergy Verified 12/18/19 13:33 Home Medications Home Medications Medication Instructions Recorded Confirmed Type L. acidophilus-L. rhamnosus 1 cap PO QAM 12/18/19 12/18/19 History [Probiotic] ascorbic acid (vitamin C) [Vitamin 1 g PO QAM 12/18/19 12/18/19 History C] aspirin 81 mg PO HS 12/18/19 12/18/19 History cholecalciferol (vitamin D3) 50 mcg PO QAM 12/18/19 12/18/19 History [Vitamin D3] ezetimibe 10 mg PO HS 12/18/19 12/18/19 History irbesartan 150 mg PO QAM 12/18/19 12/18/19 History lorazepam 0.5 mg PO HS 12/18/19 12/18/19 History niacin [Slo-Niacin] 250 mg PO HS 12/18/19 12/18/19 History onabotulinumtoxinA [Botox] 1 unit INTRADERMAL Q3M 12/18/19 12/18/19 History potassium chloride 20 meq PO QDD 12/18/19 12/18/19 History triamterene-hydrochlorothiazid 1 tab PO QAM 12/18/19 12/18/19 History Patient History Medical History C. 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 No fevers or chills. Abdomen nontender. Physical Exam Physical Exam: She is alert and oriented x3. Mood affect appear normal. She answered all questions appropriately. HEENT: Sclerae are anicteric. Pupils are equal and reactive to light and accommodation. Extraocular movements were intact. Ptosis involving the left eye. Mild droop involving the left side of her mouth Neuro: Cranial nerves intact Neck: Examination of the submandibular region did not reveal any significant lymphadenopathy. Carotids are palpable bilaterally and free of bruits on auscultation. There was no evidence of jugular venous distention. The thyroid was not enlarged. Lungs: Lungs are clear to auscultation bilaterally. There are no rales wheezes or rhonchi. She has normal respiratory effort without use of accessory muscles. There is normal pulmonary excursion. Cardiac: The rhythm was regular with rare ectopy. S1 and S2 were normal. There are no murmurs on examination. The PMI was not markedly displaced on palpation. Abdomen: The abdomen was soft Extremities: Patient has bilateral radial pulses that are equal in intensity. There is no evidence cyanosis or clubbing. There was no evidence of significant peripheral edema bilaterally. Skin: There are no rashes noted on examination today. Results & Data ([facility]) Vital Signs (Past 12 Hours) Vital Signs Temp Pulse Resp BP Pulse Ox 12/22/19 15:41 36.5 C 60 16 153/66 H 93 12/22/19 07:56 37.0 C 66 20 149/75 H 94 Laboratory Results Abnormal Lab Results 12/21/19 12/21/19 12/22/19 18:14 Unknown 00:08 WBC RBC Hgb Hct MCV MCH MCHC RDW Std Deviation RDW Coeff of Epifanio Plt Count MPV Sodium Potassium Chloride Carbon Dioxide Anion Gap BUN Creatinine Est Cr Clr Drug Dosing Est GFR ( Amer) Est GFR (Non-Af Amer) BUN/Creatinine Ratio Glucose POC Glucose 98 88 Calcium Phosphorus Magnesium Total Bilirubin AST ALT Alkaline Phosphatase Troponin I Total Protein Albumin Globulin Albumin/Globulin Ratio Stl C. diff Tox B Gene Positive Cdiff Gene H Stl C.difficile Tox A&B Negative Cdiff Toxin 12/22/19 12/22/19 12/22/19 05:24 05:24 06:07 WBC 4.56 L RBC 3.49 L Hgb 10.7 L Hct 32.8 L MCV 94.0 MCH 30.7 MCHC 32.6 RDW Std Deviation 44.9 RDW Coeff of Epifanio 13.1 Plt Count 225 MPV 10.3 Sodium 144 Potassium 3.7 Chloride 111 H Carbon Dioxide 28 Anion Gap 5.0 BUN 5 L Creatinine 0.72 Est Cr Clr Drug Dosing 56.9 Est GFR ( Amer) 91.0 Est GFR (Non-Af Amer) 78.5 BUN/Creatinine Ratio 6.8 L Glucose 79 POC Glucose 77 Calcium 8.0 L Phosphorus 2.7 D Magnesium 1.8 Total Bilirubin 0.3 AST 22 ALT 16 Alkaline Phosphatase 73 Troponin I Total Protein 5.0 L Albumin 2.5 L Globulin 2.5 Albumin/Globulin Ratio 1.0 Stl C. diff Tox B Gene Stl C.difficile Tox A&B 12/22/19 12/22/19 11:03 12:16 WBC RBC Hgb Hct MCV MCH MCHC RDW Std Deviation RDW Coeff of Epifanio Plt Count MPV Sodium Potassium Chloride Carbon Dioxide Anion Gap BUN Creatinine Est Cr Clr Drug Dosing Est GFR ( Amer) Est GFR (Non-Af Amer) BUN/Creatinine Ratio Glucose POC Glucose 88 Calcium Phosphorus Magnesium Total Bilirubin AST ALT Alkaline Phosphatase Troponin I 0.028 Total Protein Albumin Globulin Albumin/Globulin Ratio Stl C. diff Tox B Gene Stl C.difficile Tox A&B Diagnostic Findings Echocardiogram obtained today revealed preserved LV systolic function without significant structural heart disease or valvular heart disease. ECG Additional Comments: EKG obtained today demonstrated sinus rhythm with PAC PG Care Time/CCT Total # of Minutes Spent Total Time Spent with Patient: Total time spent is greater than 50% in coordination of care (as documented) at patient's floor/unit and/or counseling patient: Coding Level of Care Code 95258 Initial Inpt Care Lvl 3 Diagnoses Palpitations R00.2 Syncope R55 Syncope type: unspecified (1) Syncope Syncope type: unspecified Qualified Code(s): R55 - Syncope and collapse
--- NOTE | 2019-12-22 18:19 | Electrocardiogram Report ---
Test Reason : Blood Pressure : / mmHG Vent. Rate : 059 BPM Atrial Rate : 059 BPM P-R Int : 174 ms QRS Dur : 090 ms QT Int : 448 ms P-R-T Axes : 055 -49 010 degrees QTc Int : 443 ms Sinus bradycardia with Premature atrial complexes Left axis deviation Incomplete right bundle branch block Abnormal ECG When compared with ECG of 18-DEC-2019 12:19, Premature atrial complexes are now Present Confirmed by Edgar Amin ([id number]) on 12/22/2019 6:18:53 PM Referred By: REFERRED SELF Confirmed By:Gary Amin
[2019-12-22] MEDS: LACTATED RINGER'S 1,000 ML IV SCH (18:43)
[2019-12-22] MEDS: LORazepam 0.5 MG TAB PO SCH (20:41)
[2019-12-22] MEDS: ASPIRIN 81 MG ECTAB PO SCH (20:41)
[2019-12-22] MEDS: ENOXAPARIN INJ 40 MG/0.4 ML SYR SQ SCH (21:19)
[2019-12-23] MEDS: metroNIDAZOLE 500 MG/100 ML BAG IV SCH ×2 (00:28→08:44)
[2019-12-23 05:25] LABS: Basophils # (auto) 0.02 K/uL (0-0.2); Basophils % (auto) 0.4 %; Eosinophils % (auto) 8.7 %; Hematocrit (blood only) 33.4 % (37-47); Hemoglobin 10.6 g/dL (12.0-16.0); Immature Granulocytes # (auto) 0.02 K/uL (0.00-0.02); Immature Granulocytes % (auto) 0.4 %; Lymphocytes # (auto) 0.99 K/uL (1.2-3.4); Lymphocytes % (auto) 21.4 %; Mean Corpuscular Hemoglobin 30.5 pg (25-34); Mean Corpuscular Hgb Conc 31.7 g/dL (32-36); Mean Platelet Volume 10.3 fL (7.4-10.4); Monocytes % (auto) 8.7 %; Neutrophils # (auto) 2.79 K/uL (1.4-6.5); Neutrophils % (auto) 60.4 %; Platelet Count 232 K/uL (130-400); RDW Coefficient of Variation 13.3 % (11.5-14.5); RDW Standard Deviation 46.3 fL (36.4-46.3); Red Blood Count 3.48 M/uL (4.2-5.4); White Blood Count 4.62 K/uL (4.8-10.8)
[2019-12-23 05:54] LABS: Albumin Level 2.7 gm/dl (3.4-5.0); BUN Creatinine Ratio 6.6 (10-20); Calcium 8.2 mg/dl (8.5-10.1); Creatinine Clr Calc Pharmacy 55.8 ml/min; Est GFR (African American) 88.1; Magnesium 1.6 mg/dl (1.8-2.4); Potassium 3.5 mmol/L (3.5-5.1)
[2019-12-23 05:57] LABS: Bilirubin,Total 0.3 mg/dl (0.2-1); Globulin 2.7 gm/dl (2.5-4.0); Phosphorus 2.6 mg/dl (2.5-4.9); Total Protein 5.4 gm/dl (6.4-8.2)
[2019-12-23 06:36] LABS: Lyme Ab IgG w/WB Rflx Negative (Negative); Lyme Ab IgM w/WB Rflx Negative (Negative)
[2019-12-23] MEDS: ONDANSETRON INJ 2 MG/ML 2 ML VIAL IV PRN (08:43)
[2019-12-23] MEDS: MAGNESIUM SULFATE / D5W 1 GM/100 ML BAG IV SCH ×2 (08:43→10:36)
[2019-12-23] MEDS: CARBAMIDE PEROXIDE 6.5% 15 ML BTL OT SCH (08:51)
[2019-12-23] MEDS: ADVANCED PROBIOTIC 1250 MG CAPSULE PO SCH (08:51)
--- NOTE | 2019-12-23 09:13 | Hospitalist Progress Note ---
Date of Service December 23, 2019 Assessment & Plan Admission and Anticipated Discharge Date Admission Date: December 18, 2019 Results & Data Results & Data ([facility]) Vital Signs (Past 12 Hours) Vital Signs Temp Pulse Resp BP BP Pulse Ox 12/23/19 07:52 36.7 C 52 L 16 147/67 H 93 12/22/19 23:33 36.7 C 60 19 156/73 H 92 Laboratory Results 12/23/19 12/23/19 12/23/19 Range/Units 06:00 05:17 05:17 WBC (4.8-10.8) K/uL RBC (4.2-5.4) M/uL Hgb (12.0-16.0) g/dL Hct (37-47) % MCV (80-100) fL MCH (25-34) pg MCHC (32-36) g/dL RDW Std Deviation (36.4-46.3) fL RDW Coeff of Epifanio (11.5-14.5) % Plt Count (130-400) K/uL MPV (7.4-10.4) fL Immature Gran % (Auto) % Neut % (Auto) % Lymph % (Auto) % [place] % (Auto) % Eos % (Auto) % Baso % (Auto) % Neut # (Auto) (1.4-6.5) K/uL Lymph # (Auto) (1.2-3.4) K/uL [place] # (Auto) (0.11-0.59) K/uL Eos # (Auto) (0-0.5) K/uL Baso # (Auto) (0-0.2) K/uL Immature Gran # (Auto) (0.00-0.02) K/uL Sodium (136-145) mmol/L Potassium (3.5-5.1) mmol/L Chloride (98-107) mmol/L Carbon Dioxide (21-32) mmol/L Anion Gap (3-11) BUN (7-18) mg/dl Creatinine (0.6-1.2) mg/dl Est Cr Clr Drug Dosing ml/min Est GFR ( Amer) Est GFR (Non-Af Amer) BUN/Creatinine Ratio (10-20) Glucose (70-99) mg/dl POC Glucose 88 (70-99) mg/dl Calcium (8.5-10.1) mg/dl Phosphorus (2.5-4.9) mg/dl Magnesium (1.8-2.4) mg/dl Total Bilirubin (0.2-1) mg/dl AST (15-37) U/L ALT (12-78) U/L Alkaline Phosphatase (45-117) U/L Troponin I 0.051 H* (0-0.045) ng/ml Total Protein (6.4-8.2) gm/dl Albumin (3.4-5.0) gm/dl Globulin (2.5-4.0) gm/dl Albumin/Globulin Ratio (0.9-2) Lyme Disease IgG Ab Negative (Negative) Lyme Disease IgM Ab Negative (Negative) 12/23/19 12/23/19 12/23/19 Range/Units 05:17 05:17 00:09 WBC 4.62 L (4.8-10.8) K/uL RBC 3.48 L (4.2-5.4) M/uL Hgb 10.6 L (12.0-16.0) g/dL Hct 33.4 L (37-47) % MCV 96.0 (80-100) fL MCH 30.5 (25-34) pg MCHC 31.7 L (32-36) g/dL RDW Std Deviation 46.3 (36.4-46.3) fL RDW Coeff of Epifanio 13.3 (11.5-14.5) % Plt Count 232 (130-400) K/uL MPV 10.3 (7.4-10.4) fL Immature Gran % (Auto) 0.4 % Neut % (Auto) 60.4 % Lymph % (Auto) 21.4 % [place] % (Auto) 8.7 % Eos % (Auto) 8.7 % Baso % (Auto) 0.4 % Neut # (Auto) 2.79 (1.4-6.5) K/uL Lymph # (Auto) 0.99 L (1.2-3.4) K/uL [place] # (Auto) 0.40 (0.11-0.59) K/uL Eos # (Auto) 0.40 (0-0.5) K/uL Baso # (Auto) 0.02 (0-0.2) K/uL Immature Gran # (Auto) 0.02 (0.00-0.02) K/uL Sodium 143 (136-145) mmol/L Potassium 3.5 (3.5-5.1) mmol/L Chloride 110 H (98-107) mmol/L Carbon Dioxide 28 (21-32) mmol/L Anion Gap 5.0 (3-11) BUN 5 L (7-18) mg/dl Creatinine 0.74 (0.6-1.2) mg/dl Est Cr Clr Drug Dosing 55.8 ml/min Est GFR ( Amer) 88.1 Est GFR (Non-Af Amer) 76.0 BUN/Creatinine Ratio 6.6 L (10-20) Glucose 77 (70-99) mg/dl POC Glucose 94 (70-99) mg/dl Calcium 8.2 L (8.5-10.1) mg/dl Phosphorus 2.6 (2.5-4.9) mg/dl Magnesium 1.6 L (1.8-2.4) mg/dl Total Bilirubin 0.3 (0.2-1) mg/dl AST 29 (15-37) U/L ALT 22 (12-78) U/L Alkaline Phosphatase 75 (45-117) U/L Troponin I (0-0.045) ng/ml Total Protein 5.4 L (6.4-8.2) gm/dl Albumin 2.7 L (3.4-5.0) gm/dl Globulin 2.7 (2.5-4.0) gm/dl Albumin/Globulin Ratio 1.0 (0.9-2) Lyme Disease IgG Ab (Negative) Lyme Disease IgM Ab (Negative) 12/22/19 12/22/19 12/22/19 Range/Units 23:12 18:04 17:34 WBC (4.8-10.8) K/uL RBC (4.2-5.4) M/uL Hgb (12.0-16.0) g/dL Hct (37-47) % MCV (80-100) fL MCH (25-34) pg MCHC (32-36) g/dL RDW Std Deviation (36.4-46.3) fL RDW Coeff of Epifanio (11.5-14.5) % Plt Count (130-400) K/uL MPV (7.4-10.4) fL Immature Gran % (Auto) % Neut % (Auto) % Lymph % (Auto) % [place] % (Auto) % Eos % (Auto) % Baso % (Auto) % Neut # (Auto) (1.4-6.5) K/uL Lymph # (Auto) (1.2-3.4) K/uL [place] # (Auto) (0.11-0.59) K/uL Eos # (Auto) (0-0.5) K/uL Baso # (Auto) (0-0.2) K/uL Immature Gran # (Auto) (0.00-0.02) K/uL Sodium (136-145) mmol/L Potassium (3.5-5.1) mmol/L Chloride (98-107) mmol/L Carbon Dioxide (21-32) mmol/L Anion Gap (3-11) BUN (7-18) mg/dl Creatinine (0.6-1.2) mg/dl Est Cr Clr Drug Dosing ml/min Est GFR ( Amer) Est GFR (Non-Af Amer) BUN/Creatinine Ratio (10-20) Glucose (70-99) mg/dl POC Glucose 115 H (70-99) mg/dl Calcium (8.5-10.1) mg/dl Phosphorus (2.5-4.9) mg/dl Magnesium (1.8-2.4) mg/dl Total Bilirubin (0.2-1) mg/dl AST (15-37) U/L ALT (12-78) U/L Alkaline Phosphatase (45-117) U/L Troponin I 0.056 H* 0.036 (0-0.045) ng/ml Total Protein (6.4-8.2) gm/dl Albumin (3.4-5.0) gm/dl Globulin (2.5-4.0) gm/dl Albumin/Globulin Ratio (0.9-2) Lyme Disease IgG Ab (Negative) Lyme Disease IgM Ab (Negative) 12/22/19 12/22/19 Range/Units 12:16 11:03 WBC (4.8-10.8) K/uL RBC (4.2-5.4) M/uL Hgb (12.0-16.0) g/dL Hct (37-47) % MCV (80-100) fL MCH (25-34) pg MCHC (32-36) g/dL RDW Std Deviation (36.4-46.3) fL RDW Coeff of Epifanio (11.5-14.5) % Plt Count (130-400) K/uL MPV (7.4-10.4) fL Immature Gran % (Auto) % Neut % (Auto) % Lymph % (Auto) % [place] % (Auto) % Eos % (Auto) % Baso % (Auto) % Neut # (Auto) (1.4-6.5) K/uL Lymph # (Auto) (1.2-3.4) K/uL [place] # (Auto) (0.11-0.59) K/uL Eos # (Auto) (0-0.5) K/uL Baso # (Auto) (0-0.2) K/uL Immature Gran # (Auto) (0.00-0.02) K/uL Sodium (136-145) mmol/L Potassium (3.5-5.1) mmol/L Chloride (98-107) mmol/L Carbon Dioxide (21-32) mmol/L Anion Gap (3-11) BUN (7-18) mg/dl Creatinine (0.6-1.2) mg/dl Est Cr Clr Drug Dosing ml/min Est GFR ( Amer) Est GFR (Non-Af Amer) BUN/Creatinine Ratio (10-20) Glucose (70-99) mg/dl POC Glucose 88 (70-99) mg/dl Calcium (8.5-10.1) mg/dl Phosphorus (2.5-4.9) mg/dl Magnesium (1.8-2.4) mg/dl Total Bilirubin (0.2-1) mg/dl AST (15-37) U/L ALT (12-78) U/L Alkaline Phosphatase (45-117) U/L Troponin I 0.028 (0-0.045) ng/ml Total Protein (6.4-8.2) gm/dl Albumin (3.4-5.0) gm/dl Globulin (2.5-4.0) gm/dl Albumin/Globulin Ratio (0.9-2) Lyme Disease IgG Ab (Negative) Lyme Disease IgM Ab (Negative) PG Care Time/CCT Total # of Minutes Spent Total Time Spent with Patient: Total time spent is greater than 50% in coordination of care (as documented) at patient's floor/unit and/or counseling patient: Coding
[2019-12-23] MEDS: IRBESARTAN 150 MG TAB PO SCH (10:35)
[2019-12-23] MEDS: LACTATED RINGER'S 1,000 ML IV SCH (10:35)
[2019-12-23] MEDS: CIPROFLOXACIN / D5W 400 MG/200 ML BAG IV SCH (10:36)
--- NOTE | 2019-12-23 11:39 | Discharge Summary ---
Date of Service December 23, 2019 Admission HPI Per Admitting Provider 79 yo female who comes into the hospital with acute diverticulitis, prior occurance in 2013. Patient states that pain starts in lower left quadrant and radiates to the right lower quadrant. Eating makes the pain worse, and having a bowel movemant makes the pain feel better. The pain is sharp in nature with no radiation and associated with mild nausea. This morning's eppisode was complicated with feeling the need to strain more with her bowel movement, in which upon standing, she made it to the sink washed her hands and started feeling light headed and dizzy. The patient attempted to make it to her bed, bu t upon reaching it, she fell to the left side into a closet. Her found her and was able to maneuver her out of the closet and upon getting out she passed out again. The and the patient endorsed the patient being diaphoretic following the eppisode. The patient has not experienced passing out before. She states she intermittently gets this pain and has not been this bad. In ER the patient had a CT abdomen done and received antibiotics. Of note in 2013 following treatment for diverticulities, the patient did have C-DIFF, failed therapy with flagly requiring oral Vancomycin treatment for resolution. Admission Exam Per Admitting Provider Constitutional: well developed, well nourished and + ill appearing Eyes: PERRL, normal accommodation, EOM intact bilaterally and reactive pupils Neck: normal visual inspection, + neck tender (posterior cervical point tenderness C6-C7) and + nuchal rigidity Respiratory: normal respiratory effort, lungs clear to auscultation normal respiratory effort Auscultation: lungs clear to auscultation bilaterally Cardiovascular: RRR, no murmur, no edema Rate/Rhythm: regular rate Heart Sounds: normal S1 and normal S2 Vessels: + JVD and + carotid bruit Extremities: normal capillary refill Gastrointestinal (Abdomen): Inspection/Auscultation: abdomen normal to inspection, + abdomen distended and normal bowel sounds Percussion/Palpation: + abdomen tender (left lower quadrant) and abdomen soft; no abdominal mass and no pulsatile mass Musculoskeletal: Head/Neck/Chest: normocephalic, head atraumatic and + limited ROM of neck Spine: + limited cervical ROM, + cervical spinal tenderness (as above) and + step off deformity Principal Diagnosis Acute Diverticulitis with Abscess Discharge Exam Constitutional well developed and cooperative; no acute distress Eyes + anicteric sclerae L sided blepharospasm, chronic with drooping R ear with cerumen, non-tender to palpation of pinna/tragus neck non-tender to palpation, no increased pain with flexion/extension Neck normal visual inspection and trachea midline Respiratory normal respiratory effort, lungs clear to auscultation Cardiovascular Rate/Rhythm: regular rate and regular rhythm Heart Sounds: + murmur (mid systolic); no cardiac rub Vessels: no JVD Extremities: no edema Gastrointestinal (Abdomen) Inspection/Auscultation: abdomen normal to inspection and + hyperactive bowel sounds; abdomen not distended Percussion/Palpation: abdomen soft; abdomen nontender, no guarding and abdomen not rigid Musculoskeletal no cyanosis or clubbing, extremities motor strength 5/5 Skin warm, dry Neurologic moves all extremities and awake Psychiatric Orientation: alert and oriented x 3 Lymphatic no cervical or axillary lymphadenopathy Discharge Data Allergies Allergy/AdvReac Type Severity Reaction Status Date / Time No Known Allergies Allergy Verified 12/18/19 13:33 Consultations 12/18/19 15:12 ED Decision to Admit Stat 12/19/19 08:20 Consult Gastroenterology Routine 12/20/19 12:52 Consult General Surgery Routine 12/22/19 14:17 Consult Cardiology Routine Ordered Studies 12/18/19 12:34 CT abd pelvis IV con only Stat CXR Shoulder XRAY 12/18/19 15:58 CT cervical spine wo con Urgent CT head/brain wo con Urgent 12/20/19 09:46 CT abd pelvis IV con only Routine 12/21 ECHO Hospital Course (1) Acute diverticulitis: * Has had episodes 3-4 times in past. Most recent hospitalization per her account 2015. * Patient admitted with complicated diverticulitis --> CTA/P with possible 1.3 cm intramural abscess at this location. No perforation. Follow-up colonoscopy is recommended once the diverticulitis has resolved to exclude the less likely possibility of an underlying colonic lesion. * GI consulted -- appreciate assistance. Short term CT follow-up as below. Per surgery, no need to even consider IR/drainage for small abscess * Repeat CT with essentially unchanged, 1.4cm abscess * General surgery consulted -- rec to continue abx at this time given improvement and essentially unchanged abscess and could consider elective resection in the future * Patient was provided supportive treatment with IVF and electrolyte replacement. * Placed on Ceftriaxone/FLagyl initially but switched to cipro/flagyl and continued for 7 days * Cdiff negative x 2 * Probiotic and zofran at discharge * To continue low fiber diet for next 2 weeks and follow up colonoscopy. Question if possible like a Whipple's disease? Would need follow up with GI and biopsy for definitive diagnosis (2) Syncope: * vasovagal likely from pain. CT head and neck were negative * EKG unchanged from 2006 * No further reported but patient did express some sensation/funny feeling in chest/palpitations this morning. * EKG with incomplete BBB no longer present, bradycardia. * Trop initially negative on admission. * Repeat trop today 0.028 -- trend. If continues to increase or if patient with repeat symptoms would consider tx to tele for closer monitoring * Repeat ECHO without structural heart disease -- pt does have history of mitral valve prolapse and is followed by her PCP * Cardiology consulted -- vasovagal. Could consider monitor outpatient for frequent PAC/PVCs if continues to have issues (3) Hypertension: * BP stable * Irbesartan 150mg, triamterene-HCTZ (4) Hypoglycemia: * Glucose 49 on AM labs, 54 on POC on 12/19. Likely from lack of PO intake * Given apple juice with 79 * BSG Q6 with no further events (5) Headache: * Mild dull morning of 12/19 -- not migraine. no visual changes noted. Improved. Order additional fioricet given improvement yesterday. CT head negative. RESOLVED * Tylenol, compazine prn with no further issue reported (6) Blepharospasm of left eye: * Stable, but has been worsened over past several months. Of note, she did stop treatment for double vision but then was resolved and she resumed these * Next injection due end of December (7) Blepharospasm syndrome: * Of L eye -- previously worked up for myasthenia gravis. Could consider Whipples with RN HOME CARE involvement given abd pain, weight loss but would need definitive dx with biopsy with GI * Gets Q3M botox injections (8) Ear pain, right: * No tragus/pinna tenderness. Exam does show significant cerumen. No erythema noted * Ordered debrox and to continue at discharge. No further pain reported (9) Chest pressure: * See above. Does have history of anxiety and thought previous episodes over the past month related to that as well as they resolved on their own (10) Hypophosphatemia: * critically low 0.9 -- ordered IV replacement and repeat wnl (11) DVT prophylaxis: * Lovenox SQ while inpatient Total Time Total Time Spent Total Time Spent (In Minutes): 70 Discharge Plan Discharge Items Patient Disposition: Home - Self-Care Reason For Visit: COMPLICATED DIVERTICULITIS Discharge Diagnosis: Acute Diverticulitis with Abscess Goals: You have been hospitalized for an acute medical problem. During your stay at [facility], we have made an effort to correct the problem that brought you to the hospital while keeping you as comfortable as possible. Medications were used to bring your condition under control and your discharge instructions will include directions for any medications you should take after leaving the hospital. Please make sure you see your Primary Care Provider as part of your follow up plan. Activity: Resume your previous activity Non-emergency contact: Primary Care Provider Call non-emergency contact if: you have any medication questions, your symptoms worsen and your pain is worsening Follow-up/Referrals: Tariq Sterling DO [Physician] - (6 weeks for colonoscopy) Surya Ayon MD [Surgeon] - (2-4 weeks for possible resection) Rich Drew MD [Primary Care Provider] - Diet: Low Fiber and Lactose Intolerant Ambulatory Orders: Basic Metabolic Panel (Routine) Timeframe: 2 Days Location: Determined by Patient Ordered By: Agatha Falcon Magnesium (Routine) Timeframe: 2 Days Location: Determined by Patient Ordered By: Agatha Falcon Addtl Attending Provider Instructions: You have been hospitalized for abdominal pain and found to have acute d iverticulitis with abscess. Repeat imaging showed essentially no change however given the size and recommendations from general surgery, you should be safe to continue antibiotics for resolution as discussed. You should follow up with GI (Dr. Sterling) in the next 6-8 weeks for follow up colonoscopy as an outpatient. You should follow up with general surgery (Dr. Ayon) to discuss a possible elective resection as previously discussed. You are being sent on the following to continue for another 5 days: * Ciprofloxacin 500mg by mouth TWICE daily * Metronidazole (Flagyl) 500mg by mouth THREE times daily You have also been sent short prescription for Zofran to utilize for nausea. You should continue with a low fiber diet for the next two weeks until bowel function returns to normal and then advance as tolerated. You can continue over the counter probiotic if felt to be helpful. Your stool was checked several times for cdiff and has been determined to be negative. If you develop worsening diarrhea, abdominal pain, fever or any other symptoms that are concerning for you, please return to the emergency department. Please follow up with your primary care provider in the next week to monitor your progress. You should have repeat labs done at that time to ensure stability of electrolytes.You should also discuss possible heart monitor if you continue to experience symptoms of palpitations to see if you have more frequent PVCs. It has been a pleasure being a part of the medical team providing for you while you have been in the hospital. Take care! Pending Studies at Discharge: No Stand-Alone Forms: My [facility] Medications and DC Order Prescriptions: New carbamide peroxide [Ear Drops (carbamide peroxide)] 6.5 % Drops 5 drp otic (ear) BID 7 Days RF: 0 Advanced Probiotic 625 mg (10 billion cell) Capsule 2 cap PO DAILY 10 Days Qty: 20 RF: 0 ondansetron 4 mg tablet,disintegrating 4 mg PO DAILY PRN (Reason: nausea and vomiting) 5 Days Qty: 10 RF: 0 metronidazole 500 mg tablet 500 mg PO Q8H 5 Days Qty: 15 RF: 0 ciprofloxacin HCl 500 mg tablet 500 mg PO BID 5 Days Qty: 10 RF: 0 Continued ascorbic acid (vitamin C) [Vitamin C] 1,000 mg Tablet 1 g PO QAM RF: 0 Botox 100 unit Recon Soln 1 unit intradermal Q3M RF: 0 potassium chloride 10 mEq tablet extended release 20 meq PO QDD RF: 0 aspirin 81 mg Tablet,Delayed Release (Dr/Ec) 81 mg PO HS RF: 0 lorazepam 0.5 mg tablet 0.5 mg PO HS RF: 0 niacin [Slo-Niacin] 250 mg Tablet Extended Release 250 mg PO HS RF: 0 triamterene-hydrochlorothiazid 37.5-25 mg tablet 1 tab PO QAM RF: 0 irbesartan 150 mg tablet 150 mg PO QAM RF: 0 ezetimibe 10 mg tablet 10 mg PO HS RF: 0 cholecalciferol (vitamin D3) [Vitamin D3] 50 mcg (2,000 unit) Tablet 50 mcg PO QAM RF: 0 Probiotic 15 billion cell Capsule 1 cap PO QAM RF: 0 Discharge Orders: Discharge Order (Routine); Ordered 12/23/19 Ordered By: Agatha Falcon Admission Data Admit Date/Time: 12/18/19 15:36 Attending Provider: Prieto Sam Admit Provider: Trace Akbar Primary Care Provider: Rcih Drew Other Providers: Trace Akbar ; Tariq Sterling ; Surya Ayon ; Matthias Amin Other Interventions: Discharge Summary Assessment (RN) Last Done: 12/23/19 12:27 Coding Level of Care Code D/C Day Management >30 mins Diagnoses Acute diverticulitis K57.92 Syncope R55 Syncope type: unspecified Hypertension I10 Hypoglycemia E16.2 Headache R51.9 Blepharospasm of left eye G24.5 Blepharospasm syndrome G24.5 Ear pain, right H92.01 Chest pressure R07.89 Hypophosphatemia E83.39 DVT prophylaxis Z29.9
== END 2019-12-23 13:51 | disposition home or self-care (01) | DRG 392 ==
LOC: ED 12:11 → SUATTDRO 15:36 → 3N 15:36